=== PATIENT | male | born 1960 | race African-American/Black ===

== ENCOUNTER 2024-04-08 10:47 | Emergency (ER) | payer MEDICAID ==
[~2024-04-08] VITALS: Ht 177.8 cm; Wt 72.3 kg
[2024-04-08] MEDS ORDERED: CLON0.5T2 PO (11:31)
[2024-04-08] MEDS ORDERED: BUPR-94 PO (11:31)
[2024-04-08 11:44] VITALS: BP 162/88; PULSE 77; RESP 16; TEMP 98.7; O2SAT 98
== END 2024-04-08 11:47 | disposition home or self-care (01) ==
LOC: ER 10:47
DX: F31.9 Bipolar disorder, unspecified (principal); Z76.0 Encounter for issue of repeat prescription; Z88.8 Allergy status to other drugs, medicaments and biological substances; Z79.899 Other long term (current) drug therapy
CPT/HCPCS: 99281

== ENCOUNTER 2024-04-15 13:35 | Emergency (ER) | payer MEDICAID ==
[~2024-04-15] VITALS: Ht 180.3 cm; Wt 86.4 kg
[~2024-04-15 13:35] MED LIST: BUPR-94 PO; CLON0.5T2 PO
[2024-04-15 14:20] LABS: BASOPHILS # (AUTO) 0.1 X10'3 (0-0.2); BASOPHILS % (AUTO) 0.8 % (0-1); EOSINOPHILS # (AUTO) 0.1 X10'3 (0-0.9); HEMATOCRIT 43.6 % (42.0-52.0); HEMOGLOBIN 14.2 g/dl (14.0-17.9); LYMPHOCYTES # (AUTO) 1.2 X10'3 (1.1-4.8); LYMPHOCYTES % (AUTO) 16.3 % (21-51); MEAN CORPUSCULAR HEMOGLOBIN 27.2 PG (27.0-31.0); MEAN CORPUSCULAR HGB CONC 32.5 g/dL (33.0-36.5); MEAN CORPUSCULAR VOLUME 83.8 FL (78-98); MEAN PLATELET VOLUME 9.4 FL (7.4-10.4); MONOCYTES # (AUTO) 0.7 X10'3 (0-0.9); MONOCYTES % (AUTO) 9.3 % (2-12); NEUTROPHILS # (AUTO) 5.2 X10'3 (1.8-7.7); NEUTROPHILS % (AUTO) 71.6 % (42-75); PLATELET COUNT 207 X10'3 (140-440); RED CELL DISTRIBUTION WIDTH 14.8 % (11.5-14.5); WHITE BLOOD COUNT 7.2 X10'3 (4.5-11.0)
[2024-04-15 14:31] LABS: ALBUMIN 3.1 G/DL (3.4-5.0); ANION GAP 6 (8-16); BLOOD UREA NITROGEN 12 MG/DL (7-18); BUN/CREATININE RATIO 9.4 (10.0-20.0); CALCIUM 8.3 MG/DL (8.5-10.1); CHLORIDE 99 MMOL/L (99-107); CREATININE 1.27 MG/DL (0.60-1.10); GLUCOSE 113 MG/DL (70-104); POTASSIUM 3.2 MMOL/L (3.5-5.1); SODIUM 135 MMOL/L (135-145); TOTAL CARBON DIOXIDE 30.2 MMOL/L (24-32); eCRCL 63 ML/MIN; eGFR 69 ML/MIN
[2024-04-15 14:34] LABS: APTT 26 SECONDS (22-32); INR 1.1 INR; PROTHROMBIN TIME 11.4 SECONDS (9.0-12.0)
[2024-04-15 14:55] LABS: ETHANOL < 10 MG/DL (<10)
[2024-04-15] MEDS: potassium Cl 20 mEq SR tablet PO STA (16:53)
[2024-04-15 17:06] LABS: BILIRUBIN,URINE NEGATIVE (Neg); CLARITY,URINE CLEAR (Clear); COLOR,URINE YELLOW (Yellow); GLUCOSE, URINE NEGATIVE (Neg); KETONES,URINE NEGATIVE (Neg); LEUKOCYTE ESTERASE ,URINE NEGATIVE (Neg); NITRITES, URINE NEGATIVE (Neg); OCCULT BLOOD,URINE NEGATIVE (Neg); PROTEIN,URINE NEGATIVE (Neg); UROBILINOGEN,URINE 0.2 E.U/dL (0.2-1.0)
[2024-04-15 17:26] LABS: URINE AMPHETAMINE SCREEN NEGATIVE (Neg); URINE BARBITUATE SCREEN NEGATIVE (Neg); URINE BENZODIAZEPINES SCREEN NEGATIVE (Neg); URINE CANNABINOID SCREEN NEGATIVE (Neg); URINE COCAINE SCREEN NEGATIVE (Neg); URINE METHADONE SCREEN NEGATIVE (Neg); URINE OPIATE SCREEN NEGATIVE (Neg); URINE PHENCYCLIDINE SCREEN NEGATIVE (Neg)
[2024-04-15 17:30] LABS: UA COLLECTION TYPE URINAL
[2024-04-15 18:05] VITALS: BP 127/79; PULSE 70; RESP 16; TEMP 98.2; O2SAT 98
== END 2024-04-15 18:08 | disposition home or self-care (01) ==
LOC: ER 13:36
DX: R53.1 Weakness (principal); R47.81 Slurred speech; R51.9 Headache, unspecified; E11.9 Type 2 diabetes mellitus without complications; Z88.8 Allergy status to other drugs, medicaments and biological substances; Z79.899 Other long term (current) drug therapy
CPT/HCPCS: 36415; 70450; 71045; 80048; 80305; 80320; 81003; 82948; 85025; 85610; 85730; 93005; 99285

== ENCOUNTER 2024-04-30 10:03 | Emergency (ER) | payer MEDICAID ==
[~2024-04-30] VITALS: Ht 177.8 cm; Wt 89.9 kg
[2024-04-30 11:26] LABS: BASOPHILS # (AUTO) 0.1 X10'3 (0-0.2); BASOPHILS % (AUTO) 0.6 % (0-1); EOSINOPHILS # (AUTO) 0.1 X10'3 (0-0.9); EOSINOPHILS % (AUTO) 1.6 % (0-6); HEMOGLOBIN 14.6 g/dl (14.0-17.9); LYMPHOCYTES # (AUTO) 2.5 X10'3 (1.1-4.8); LYMPHOCYTES % (AUTO) 28.7 % (21-51); MEAN CORPUSCULAR HEMOGLOBIN 27.1 PG (27.0-31.0); MEAN CORPUSCULAR HGB CONC 32.5 g/dL (33.0-36.5); MEAN CORPUSCULAR VOLUME 83.5 FL (78-98); MEAN PLATELET VOLUME 10.2 FL (7.4-10.4); MONOCYTES # (AUTO) 0.8 X10'3 (0-0.9); MONOCYTES % (AUTO) 9.1 % (2-12); NEUTROPHILS # (AUTO) 5.2 X10'3 (1.8-7.7); PLATELET COUNT 267 X10'3 (140-440); RED BLOOD COUNT 5.39 X10'6 (4.70-6.10); WHITE BLOOD COUNT 8.7 X10'3 (4.5-11.0)
[2024-04-30 11:54] LABS: ALANINE AMINOTRANSFERASE 277 U/L (12-78); ALBUMIN 3.4 G/DL (3.4-5.0); ALBUMIN/GLOBULIN RATIO 0.6 (1.1-1.5); ALKALINE PHOSPHATASE 91 IU/L (46-116); ANION GAP 10 (8-16); ASPARTATE AMINO TRANSFERASE 121 U/L (10-37); BILIRUBIN,TOTAL 0.5 MG/DL (0.1-1.0); BLOOD UREA NITROGEN 15 MG/DL (7-18); BUN/CREATININE RATIO 17.2 (10.0-20.0); CALCIUM 9.1 MG/DL (8.5-10.1); CHLORIDE 99 MMOL/L (99-107); CREATININE 0.87 MG/DL (0.60-1.10); GLUCOSE 95 MG/DL (70-104); LIPASE 25 U/L (16-77); POTASSIUM 3.8 MMOL/L (3.5-5.1); SODIUM 137 MMOL/L (135-145); TOTAL CARBON DIOXIDE 28.2 MMOL/L (24-32); eCRCL 90 ML/MIN; eGFR > 90 ML/MIN
[2024-04-30 13:04] VITALS: TEMP 98
[2024-04-30 13:59] VITALS: BP 138/80; PULSE 72; RESP 16; O2SAT 97
[2024-04-30] MEDS ORDERED: LISI40TA13 PO (14:55)
[2024-04-30] MEDS ORDERED: CLON-850 PO (14:55)
[2024-04-30] MEDS ORDERED: GABA600T13 PO (14:55)
[2024-04-30] MEDS ORDERED: CHLO50TA52 PO (14:55)
[2024-04-30] MEDS ORDERED: IBUP-1985 PO (14:55)
[2024-04-30] MEDS ORDERED: ONDA-243 PO (14:55)
[2024-04-30] MEDS ORDERED: HYDR25TA5 PO (14:55)
[2024-04-30 14:58] LABS: BILIRUBIN,URINE NEGATIVE (Neg); CLARITY,URINE CLEAR (Clear); COLOR,URINE YELLOW (Yellow); GLUCOSE, URINE NEGATIVE (Neg); KETONES,URINE NEGATIVE (Neg); LEUKOCYTE ESTERASE ,URINE TRACE (Neg); NITRITES, URINE NEGATIVE (Neg); OCCULT BLOOD,URINE NEGATIVE (Neg); PROTEIN,URINE NEGATIVE (Neg); UROBILINOGEN,URINE 0.2 E.U/dL (0.2-1.0)
[2024-04-30] MEDS ORDERED: AMLO10TA13 PO (15:00)
[2024-04-30] MEDS ORDERED: FAMO20TA8 PO (15:00)
[2024-04-30] MEDS: mag hydrox/Alum hydrox/simeth 30ml oral suspension PO ONE (15:01)
[2024-04-30] MEDS: LIDOcaine 2% Viscous 15ml cup MM PRN (15:01)
[2024-04-30] MEDS ORDERED: CLON0.5T54 PO (15:02)
[2024-04-30] MEDS: ondansetron 4mg rapidly disintigrating tab PO ONE (15:02)
[2024-04-30] MEDS: chlorproMAZINE 25mg tablet PO PRN (15:04)
[2024-04-30 15:13] LABS: UA COLLECTION TYPE CLN CATCH MIDSTREAM
[2024-04-30 15:17] LABS: RBC,URINE NONE SEEN /HPF (0-2); WBC,URINE 0-4 /HPF (0-4)
[2024-04-30 15:18] LABS: BACTERIA,URINE FEW /HPF (Neg); MUCUS STRANDS MODERATE /LPF (Neg); SQUAMOUS EPITHELIAL CELL,UR NONE SEEN /LPF (FEW)
== END 2024-04-30 15:15 | disposition home or self-care (01) ==
LOC: ER 10:04
DX: K21.9 Gastro-esophageal reflux disease without esophagitis (principal); R10.9 Unspecified abdominal pain; E11.9 Type 2 diabetes mellitus without complications; Z88.5 Allergy status to narcotic agent; Z79.899 Other long term (current) drug therapy; Z79.1 Long term (current) use of non-steroidal anti-inflammatories (NSAID)
CPT/HCPCS: 36415; 80053; 81001; 83690; 85025; 87088; 99285; Q0161

== ENCOUNTER 2024-05-07 09:31 | Emergency (ER) | payer MEDICAID ==
[~2024-05-07] VITALS: Ht 177.8 cm; Wt 93.3 kg
[~2024-05-07 09:31] MED LIST changes: +AMLO10TA13 PO; +CHLO50TA52 PO; +CLON0.5T54 PO; +FAMO20TA8 PO; +GABA600T13 PO; +HYDR25TA5 PO; +IBUP-1985 PO; +LISI40TA13 PO; +ONDA-243 PO
[2024-05-07 09:39] VITALS: BP 154/89; PULSE 83; RESP 16; TEMP 98; O2SAT 98
[2024-05-07] MEDS ORDERED: BUSP5TAB3 PO (10:37)
[2024-05-07] MEDS ORDERED: BUPR300T53 PO (10:59)
[2024-05-07] MEDS ORDERED: NICO-578 TOP (11:03)
[2024-05-07] MEDS ORDERED: BUPR-94 PO (11:04)
== END 2024-05-07 11:09 | disposition home or self-care (01) ==
LOC: ER 09:31
DX: Z00.00 Encounter for general adult medical examination without abnormal findings (principal); R07.89 Other chest pain; E11.9 Type 2 diabetes mellitus without complications; Z76.0 Encounter for issue of repeat prescription; Z88.5 Allergy status to narcotic agent; Z79.899 Other long term (current) drug therapy; Z72.89 Other problems related to lifestyle
CPT/HCPCS: 99281

== ENCOUNTER 2024-05-27 09:37 | Emergency (ER) | payer MEDICAID ==
[~2024-05-27] VITALS: Ht 180.3 cm; Wt 75.2 kg
[~2024-05-27 09:37] MED LIST changes: +NICO-578 TOP
[2024-05-27] MEDS ORDERED: BUSP10TA11 PO (10:12)
[2024-05-27] MEDS ORDERED: IBUP-1985 PO (10:12)
[2024-05-27] MEDS ORDERED: LISI20TA28 PO (10:12)
[2024-05-27] MEDS ORDERED: HYDR12.55 PO (10:12)
[2024-05-27] MEDS ORDERED: GABA600T13 PO (10:12)
[2024-05-27] MEDS ORDERED: METF-900 PO (10:12)
[2024-05-27] MEDS ORDERED: CLON-850 PO ×2 (10:14→11:16)
[2024-05-27 10:32] VITALS: BP 148/86; PULSE 88; RESP 18; TEMP 97.9; O2SAT 99
== END 2024-05-27 10:35 | disposition home or self-care (01) ==
LOC: ER 09:38
DX: F41.9 Anxiety disorder, unspecified (principal); E11.9 Type 2 diabetes mellitus without complications; Z76.0 Encounter for issue of repeat prescription; Z88.8 Allergy status to other drugs, medicaments and biological substances; Z79.899 Other long term (current) drug therapy; Z79.1 Long term (current) use of non-steroidal anti-inflammatories (NSAID)
CPT/HCPCS: 99281

== ENCOUNTER 2024-06-17 17:35 | Emergency (ER) | payer MEDICAID ==
[~2024-06-17] VITALS: Ht 177.8 cm; Wt 75.0 kg
[~2024-06-17 17:35] MED LIST changes: +BUSP10TA11 PO; +CLON-850 PO; +HYDR12.55 PO; +LISI20TA28 PO; -LISI40TA13 PO; +METF-900 PO
[2024-06-17] MEDS ORDERED: CHLO10TA18 PO (18:40)
[2024-06-17] MEDS ORDERED: CLON0.5T2 PO ×2 (18:40→19:06)
[2024-06-17 19:07] VITALS: BP 148/86; PULSE 88; RESP 18; TEMP 98.8; O2SAT 98
== END 2024-06-17 19:10 | disposition home or self-care (01) ==
LOC: ER 17:36
DX: R06.6 Hiccough (principal); E11.9 Type 2 diabetes mellitus without complications; Z88.5 Allergy status to narcotic agent; Z88.6 Allergy status to analgesic agent; Z88.8 Allergy status to other drugs, medicaments and biological substances
CPT/HCPCS: 99283

== ENCOUNTER 2024-07-20 00:30 | Inpatient (IN) | payer MEDICAID ==
[~2024-07-20] VITALS: Ht 177.8 cm; Wt 95.2 kg
[~2024-07-20 00:30] MED LIST changes: -BUSP10TA11 PO; +GABA-1405 PO; -GABA600T13 PO; -LISI20TA28 PO; -METF-900 PO
[2024-07-20 02:13] LABS: URINE AMPHETAMINE SCREEN NEGATIVE (Neg); URINE BARBITUATE SCREEN NEGATIVE (Neg); URINE BENZODIAZEPINES SCREEN NEGATIVE (Neg); URINE CANNABINOID SCREEN POSITIVE (Neg); URINE COCAINE SCREEN NEGATIVE (Neg); URINE METHADONE SCREEN NEGATIVE (Neg); URINE OPIATE SCREEN NEGATIVE (Neg); URINE PHENCYCLIDINE SCREEN NEGATIVE (Neg)
[2024-07-20] MEDS: HYDROcodone/acetaminophen 10/325mg tab PO ONE (04:12)
[2024-07-20] MEDS: naproxen 500mg tablet PO ONE (04:12)
[2024-07-20 04:26] LABS: BILIRUBIN,URINE NEGATIVE (Neg); CLARITY,URINE CLEAR (Clear); COLOR,URINE YELLOW (Yellow); GLUCOSE, URINE NEGATIVE (Neg); KETONES,URINE NEGATIVE (Neg); LEUKOCYTE ESTERASE ,URINE NEGATIVE (Neg); NITRITES, URINE NEGATIVE (Neg); OCCULT BLOOD,URINE NEGATIVE (Neg); PROTEIN,URINE NEGATIVE (Neg); UA COLLECTION TYPE CLN CATCH MIDSTREAM; UROBILINOGEN,URINE 0.2 E.U/dL (0.2-1.0)
[2024-07-20 04:33] LABS: BASOPHILS % (AUTO) 0.2 % (0-1); EOSINOPHILS # (AUTO) 0.1 X10'3 (0-0.9); EOSINOPHILS % (AUTO) 0.3 % (0-6); HEMATOCRIT 42.5 % (42.0-52.0); HEMOGLOBIN 13.8 g/dl (14.0-17.9); LYMPHOCYTES # (AUTO) 3.2 X10'3 (1.1-4.8); LYMPHOCYTES % (AUTO) 20.6 % (21-51); MEAN CORPUSCULAR HEMOGLOBIN 27.6 PG (27.0-31.0); MEAN CORPUSCULAR HGB CONC 32.4 g/dL (33.0-36.5); MONOCYTES % (AUTO) 6.4 % (2-12); NEUTROPHILS # (AUTO) 11.1 X10'3 (1.8-7.7); NEUTROPHILS % (AUTO) 72.5 % (42-75); PLATELET COUNT 247 X10'3 (140-440); RED CELL DISTRIBUTION WIDTH 14.5 % (11.5-14.5); WHITE BLOOD COUNT 15.4 X10'3 (4.5-11.0)
[2024-07-20 04:39] LABS: D-DIMER 0.35 MG/L FEU (0-0.50)
[2024-07-20 04:43] LABS: ALANINE AMINOTRANSFERASE 36 U/L (12-78); ALBUMIN 3.3 G/DL (3.4-5.0); ALBUMIN/GLOBULIN RATIO 0.6 (1.1-1.5); ALKALINE PHOSPHATASE 87 IU/L (46-116); ANION GAP 6 (8-16); ASPARTATE AMINO TRANSFERASE 22 U/L (10-37); BILIRUBIN,DIRECT 0.2 MG/DL (0-0.3); BILIRUBIN,TOTAL 0.5 MG/DL (0.1-1.0); BLOOD UREA NITROGEN 14 MG/DL (7-18); BUN/CREATININE RATIO 13.1 (10.0-20.0); CALCIUM 8.7 MG/DL (8.5-10.1); CHLORIDE 103 MMOL/L (99-107); CREATININE 1.07 MG/DL (0.60-1.10); GLUCOSE 102 MG/DL (70-104); MAGNESIUM 1.9 MG/DL (1.5-2.4); POTASSIUM 4.1 MMOL/L (3.5-5.1); SODIUM 142 MMOL/L (135-145); TOTAL CARBON DIOXIDE 33.4 MMOL/L (24-32); TOTAL PROTEIN 8.8 G/DL (6.4-8.2); eCRCL 73 ML/MIN; eGFR 84 ML/MIN
[2024-07-20 04:51] LABS: TOTAL CELLS COUNTED 100
[2024-07-20] MEDS: HYDROmorphone 1 mg/ml syringe IV ONE (05:27)
[2024-07-20] MEDS: ondansetron/PF 4mg/2ml inj IV ONE (05:31)
[2024-07-20] MEDS: HYDROcodone/acetaminophen 5mg/325mg tablet PO ONE (05:34)
[2024-07-20] MEDS ORDERED: iohexol 350MG/ML 100ml bottle IV ONE (07:01)
[2024-07-20] MEDS: CefTRIAXone 2gm/D5W 50ml BAG 50 ML IV ONE (07:29)
[2024-07-20] MEDS: normal saline 1000ML IV soln IVB ONE (07:29)
[2024-07-20] MEDS: aspirin 81mg tab.chew PO ONE (07:30)
[2024-07-20] MEDS: enoxaparin 100mg/ml syringe SUBCUT ONE (07:30)
[2024-07-20 08:05] LABS: APTT 25 SECONDS (22-32); INR 1.1 INR; PROTHROMBIN TIME 11.4 SECONDS (9.0-12.0)
[2024-07-20] MEDS ORDERED: potassium Cl 40MEQ/1/2NS 520ml 520 ML IV PRN (08:55)
[2024-07-20] MEDS ORDERED: mag hydrox/Alum hydrox/simeth 30ml oral suspension PO PRN (08:55)
[2024-07-20] MEDS ORDERED: acetaminophen 325mg tablet PO PRN (08:55)
[2024-07-20] MEDS ORDERED: ondansetron/PF 4mg/2ml inj IV PRN (08:55)
[2024-07-20] MEDS ORDERED: magnesium Cl slow-release 64mg tablet PO PRN (08:55)
[2024-07-20] MEDS ORDERED: magnesium sulf-water 2g/50mL 50 ML IV PRN (08:55)
[2024-07-20] MEDS ORDERED: potassium Cl 20 mEq SR tablet PO PRN ×2 (08:55)
[2024-07-20] MEDS ORDERED: magnesium sulf-water 4G/100mL 100 ML IV PRN (08:55)
[2024-07-20] MEDS ORDERED: DOXE10CA3 PO (08:58)
[2024-07-20] MEDS ORDERED: GLEC1TAB PO (08:58)
[2024-07-20 09:13] LABS: PHOSPHORUS 4.4 MG/DL (2.3-4.5)
[2024-07-20] MEDS ORDERED: HYDROcodone/acetaminophen 5mg/325mg tablet PO PRN (10:10)
[2024-07-20] MEDS ORDERED: hydrALAZINE 20mg/ml inj. IV PRN (10:45)
[2024-07-20 11:40] LABS: CHOL/HDL RATIO 2.7 (0.00-4.99); CHOLESTEROL 152 MG/DL (0-200); HDL CHOLESTEROL 57 MG/DL (35-60); LDL CHOLESTEROL 88 MG/DL (50-100); TRIGLYCERIDES 59 MG/DL (20-135)
[2024-07-20 11:44] LABS: HEMOGLOBIN A1C 5.4 % (4.5-6.2)
[2024-07-20] MEDS: losartan 25mg tablet PO ONE (12:04)
[2024-07-20] MEDS: HYDROchlorothiazide 25mg tablet PO SCH (12:05)
[2024-07-20] MEDS: amLODIPine 5mg tablet PO ONE (12:05)
[2024-07-20] MEDS: BUPROPION HCL 150MG XL 24 HR 150 MG TAB PO SCH (12:05)
[2024-07-20 15:05] VITALS: BP 167/98; PULSE 82; RESP 18; TEMP 98.6; O2SAT 99
[2024-07-20] MEDS: chlorproMAZINE 25mg tablet PO SCH (17:07)
[2024-07-20] MEDS: HYDROcodone/acetaminophen 10/325mg tab PO PRN (17:07)
[2024-07-20] MEDS: losartan 25mg tablet PO STA (17:08)
[2024-07-20] MEDS ORDERED: dextrose 50%-water 50ml dispensing syringe IV PRN ×2 (17:45)
[2024-07-20] MEDS ORDERED: DEXTROSE 15 GM of carb/4 tabs (each vial/BOTTLE has 4 tablets) PO PRN ×2 (17:45)
[2024-07-20] MEDS ORDERED: glucagon, human recombinant 1mg kit SUBCUT PRN (17:45)
[2024-07-20 18:00] VITALS: BP 156/98; PULSE 71; RESP 14; TEMP 98.2; O2SAT 98
[2024-07-20] MEDS: K and/or MAG REPLACEMENT MC SCH (19:50)
[2024-07-20 20:00] VITALS: RESP 20; O2SAT 98
[2024-07-20] MEDS: gabapentin 300mg capsule PO SCH (20:40)
[2024-07-20] MEDS: doxepin 10mg capsule PO SCH (20:40)
[2024-07-20] MEDS: enoxaparin 100mg/ml syringe SUBCUT SCH (20:43)
[2024-07-20] MEDS ORDERED: GLECAPREVIR PO SCH (20:50)
[2024-07-20] MEDS ORDERED: PIBRENTASVIR PO SCH (20:50)
[2024-07-20] MEDS: INSULIN LISPRO 100 UNIT/ML INSULN.PEN MULTI-DOSE SQ SCH (21:00)
[2024-07-20] MEDS: insulin glargine (Lantus) pen - multi-dose SQ SCH (21:28)
[2024-07-20 22:00] VITALS: BP 135/87; PULSE 64; RESP 23; TEMP 98.9; O2SAT 100
[2024-07-21 06:13] LABS: BASOPHILS # (AUTO) 0.1 X10'3 (0-0.2); EOSINOPHILS # (AUTO) 0.4 X10'3 (0-0.9); EOSINOPHILS % (AUTO) 4.9 % (0-6); HEMATOCRIT 40.1 % (42.0-52.0); HEMOGLOBIN 13.1 g/dl (14.0-17.9); LYMPHOCYTES # (AUTO) 2.5 X10'3 (1.1-4.8); LYMPHOCYTES % (AUTO) 30.7 % (21-51); MEAN CORPUSCULAR HEMOGLOBIN 27.5 PG (27.0-31.0); MEAN CORPUSCULAR HGB CONC 32.7 g/dL (33.0-36.5); MEAN CORPUSCULAR VOLUME 84.2 FL (78-98); MEAN PLATELET VOLUME 10.2 FL (7.4-10.4); MONOCYTES # (AUTO) 0.7 X10'3 (0-0.9); MONOCYTES % (AUTO) 7.9 % (2-12); NEUTROPHILS # (AUTO) 4.6 X10'3 (1.8-7.7); NEUTROPHILS % (AUTO) 55.5 % (42-75); PLATELET COUNT 171 X10'3 (140-440); RED BLOOD COUNT 4.76 X10'6 (4.70-6.10); RED CELL DISTRIBUTION WIDTH 14.1 % (11.5-14.5); WHITE BLOOD COUNT 8.3 X10'3 (4.5-11.0)
[2024-07-21 06:16] LABS: ALBUMIN 2.9 G/DL (3.4-5.0); ANION GAP 4 (8-16); BLOOD UREA NITROGEN 15 MG/DL (7-18); BUN/CREATININE RATIO 14.7 (10.0-20.0); CALCIUM 8.3 MG/DL (8.5-10.1); CHLORIDE 100 MMOL/L (99-107); CREATININE 1.02 MG/DL (0.60-1.10); GLUCOSE 99 MG/DL (70-104); POTASSIUM 3.7 MMOL/L (3.5-5.1); SODIUM 134 MMOL/L (135-145); TOTAL CARBON DIOXIDE 30.3 MMOL/L (24-32); eCRCL 77 ML/MIN; eGFR 89 ML/MIN
[2024-07-21 06:55] VITALS: BP 138/86; PULSE 76; RESP 18; O2SAT 96
[2024-07-21] MEDS: losartan 25mg tablet PO SCH (07:56)
[2024-07-21] MEDS: amLODIPine 5mg tablet PO SCH (07:58)
[2024-07-21] MEDS: doxepin 10mg capsule PO SCH (07:59)
[2024-07-21] MEDS: CefTRIAXone/D5W-Rocephin 1gm 50 ML IV SCH (08:18)
[2024-07-21 08:41] VITALS: RESP 18; O2SAT 99
[2024-07-21 10:26] VITALS: BP 146/92; PULSE 85; RESP 18; TEMP 97.5; O2SAT 99
[2024-07-21 10:40] VITALS: RESP 18; O2SAT 96
[2024-07-21] MEDS: magnesium hydroxide 30ml (MOM) UD suspension PO PRN (11:12)
[2024-07-21 18:00] VITALS: BP 139/89; PULSE 93; RESP 17; TEMP 97.5; O2SAT 97
[2024-07-21 20:00] VITALS: RESP 17; O2SAT 97
[2024-07-21] MEDS: clonazePAM 0.5mg tablet PO PRN (20:48)
[2024-07-21] MEDS: PIBRENTASVIR PO SCH (20:56)
[2024-07-21] MEDS: GLECAPREVIR PO SCH (20:56)
[2024-07-22 06:00] VITALS: BP 144/80; PULSE 77; RESP 18; TEMP 97.9; O2SAT 94
[2024-07-22 06:02] LABS: BASOPHILS # (AUTO) 0.1 X10'3 (0-0.2); BASOPHILS % (AUTO) 1.3 % (0-1); EOSINOPHILS # (AUTO) 0.4 X10'3 (0-0.9); EOSINOPHILS % (AUTO) 4.5 % (0-6); HEMATOCRIT 41.3 % (42.0-52.0); HEMOGLOBIN 13.5 g/dl (14.0-17.9); LYMPHOCYTES # (AUTO) 2.6 X10'3 (1.1-4.8); LYMPHOCYTES % (AUTO) 30.5 % (21-51); MEAN CORPUSCULAR HEMOGLOBIN 27.6 PG (27.0-31.0); MEAN CORPUSCULAR HGB CONC 32.6 g/dL (33.0-36.5); MEAN CORPUSCULAR VOLUME 84.7 FL (78-98); MEAN PLATELET VOLUME 9.8 FL (7.4-10.4); MONOCYTES # (AUTO) 0.8 X10'3 (0-0.9); MONOCYTES % (AUTO) 9.5 % (2-12); NEUTROPHILS # (AUTO) 4.6 X10'3 (1.8-7.7); NEUTROPHILS % (AUTO) 54.2 % (42-75); PLATELET COUNT 199 X10'3 (140-440); RED BLOOD COUNT 4.87 X10'6 (4.70-6.10); RED CELL DISTRIBUTION WIDTH 14.5 % (11.5-14.5); WHITE BLOOD COUNT 8.4 X10'3 (4.5-11.0)
[2024-07-22 06:16] LABS: ANION GAP 5 (8-16); BLOOD UREA NITROGEN 25 MG/DL (7-18); BUN/CREATININE RATIO 20.8 (10.0-20.0); CALCIUM 8.4 MG/DL (8.5-10.1); CHLORIDE 101 MMOL/L (99-107); GLUCOSE 95 MG/DL (70-104); POTASSIUM 4.7 MMOL/L (3.5-5.1); SODIUM 138 MMOL/L (135-145); TOTAL CARBON DIOXIDE 32.1 MMOL/L (24-32); eCRCL 65 ML/MIN; eGFR 74 ML/MIN
[2024-07-22] MEDS ORDERED: LOSA25TA41 PO (07:45)
[2024-07-22] MEDS ORDERED: LACT1CAP26 PO (07:45)
[2024-07-22] MEDS ORDERED: CEFD300C3 PO (07:45)
[2024-07-22 08:19] VITALS: RESP 17; O2SAT 97
[2024-07-22 10:00] VITALS: BP 124/72; PULSE 78; RESP 18; TEMP 98.1; O2SAT 97
[2024-07-22 11:35] VITALS: RESP 18
[2024-07-22] MEDS ORDERED: APIX5TAB3 PO ×2 (12:31→12:32)
== END 2024-07-22 13:10 | disposition home or self-care (01) | DRG 197 ==
LOC: ER 00:32 → ED HOLD 07:16 → UNDOADMIN 07:16 → ED HOLD 08:54 → ORTHO 4S 14:55 → ED HOLD 14:55
PROVIDERS: ADMIT Family Medicine; ATTEND Family Medicine
PROC: B3251ZZ Computerized Tomography (CT Scan) of Bilateral Common Carotid Arteries using Low Osmolar Contrast (ICD-10-PCS; principal; 2024-07-20)
PROC: B32G1ZZ Computerized Tomography (CT Scan) of Bilateral Vertebral Arteries using Low Osmolar Contrast (ICD-10-PCS; 2024-07-20)
PROC: B32R1ZZ Computerized Tomography (CT Scan) of Intracranial Arteries using Low Osmolar Contrast (ICD-10-PCS; 2024-07-20)
PROC: B3281ZZ Computerized Tomography (CT Scan) of Bilateral Internal Carotid Arteries using Low Osmolar Contrast (ICD-10-PCS; 2024-07-20)
DX: I82.4Z2 Acute embolism and thrombosis of unspecified deep veins of left distal lower extremity (principal); L03.116 Cellulitis of left lower limb; F41.9 Anxiety disorder, unspecified; M17.12 Unilateral primary osteoarthritis, left knee; I16.0 Hypertensive urgency; E11.9 Type 2 diabetes mellitus without complications; Z88.5 Allergy status to narcotic agent; Z79.899 Other long term (current) drug therapy; Z90.49 Acquired absence of other specified parts of digestive tract
CPT/HCPCS: 36415; 71275; 73564; 73610; 80048; 80061; 80076; 80305; 81003; 82948; 83036; 83605; 83735; 84100; 84145; 85007; 85025; 85379; 85610; 85730; 87040; 87081; 93005; 93306; 93971; 99285; G0378; J0696; J1650; J1815; J2405; J7030; Q0161; Q9967

== ENCOUNTER 2024-08-04 13:54 | Emergency (ER) | payer MEDICAID ==
[~2024-08-04] VITALS: Ht 177.8 cm; Wt 95.0 kg
[~2024-08-04 13:54] MED LIST changes: +APIX5TAB3 PO; +CEFD300C3 PO; -CLON0.5T54 PO; +DOXE10CA3 PO; +GLEC1TAB PO; -HYDR12.55 PO; +LACT1CAP26 PO; +LOSA25TA41 PO; +OXYC-145 PO
[2024-08-04] MEDS: ketorolac trometh 15mg/ml vial 15 MG/ML ML IM ONE (15:08)
[2024-08-04 15:21] LABS: BILIRUBIN,URINE NEGATIVE (Neg); CLARITY,URINE CLEAR (Clear); COLOR,URINE YELLOW (Yellow); GLUCOSE, URINE NEGATIVE (Neg); KETONES,URINE NEGATIVE (Neg); LEUKOCYTE ESTERASE ,URINE NEGATIVE (Neg); NITRITES, URINE NEGATIVE (Neg); OCCULT BLOOD,URINE TRACE-INTACT (Neg); PROTEIN,URINE NEGATIVE (Neg)
[2024-08-04 15:22] LABS: BASOPHILS # (AUTO) 0.1 X10'3 (0-0.2); BASOPHILS % (AUTO) 0.7 % (0-1); EOSINOPHILS # (AUTO) 0.1 X10'3 (0-0.9); EOSINOPHILS % (AUTO) 1.3 % (0-6); HEMATOCRIT 43.5 % (42.0-52.0); HEMOGLOBIN 14.3 g/dl (14.0-17.9); LYMPHOCYTES # (AUTO) 2.4 X10'3 (1.1-4.8); LYMPHOCYTES % (AUTO) 25.7 % (21-51); MEAN CORPUSCULAR HEMOGLOBIN 28.1 PG (27.0-31.0); MEAN CORPUSCULAR VOLUME 85.2 FL (78-98); MONOCYTES # (AUTO) 0.7 X10'3 (0-0.9); MONOCYTES % (AUTO) 7.4 % (2-12); NEUTROPHILS # (AUTO) 6.1 X10'3 (1.8-7.7); NEUTROPHILS % (AUTO) 64.9 % (42-75); PLATELET COUNT 212 X10'3 (140-440); RED CELL DISTRIBUTION WIDTH 13.9 % (11.5-14.5); WHITE BLOOD COUNT 9.4 X10'3 (4.5-11.0)
[2024-08-04 15:31] LABS: UA COLLECTION TYPE CLN CATCH MIDSTREAM
[2024-08-04 15:32] LABS: WBC,URINE 0-4 /HPF (0-4)
[2024-08-04 15:33] LABS: BACTERIA,URINE NONE SEEN /HPF (Neg); RBC,URINE 0-2 /HPF (0-2); SQUAMOUS EPITHELIAL CELL,UR FEW /LPF (FEW); TRANSITIONAL EPI CELLS,URINE FEW /HPF
[2024-08-04 15:47] LABS: ALANINE AMINOTRANSFERASE 19 U/L (12-78); ALBUMIN 3.4 G/DL (3.4-5.0); ALBUMIN/GLOBULIN RATIO 0.6 (1.1-1.5); ALKALINE PHOSPHATASE 80 IU/L (46-116); ANION GAP 7 (8-16); ASPARTATE AMINO TRANSFERASE 16 U/L (10-37); BILIRUBIN,TOTAL 0.5 MG/DL (0.1-1.0); BLOOD UREA NITROGEN 15 MG/DL (7-18); BUN/CREATININE RATIO 14.9 (10.0-20.0); CALCIUM 8.5 MG/DL (8.5-10.1); CHLORIDE 103 MMOL/L (99-107); CREATININE 1.01 MG/DL (0.60-1.10); GLUCOSE 87 MG/DL (70-104); LIPASE 41 U/L (16-77); SODIUM 139 MMOL/L (135-145); TOTAL CARBON DIOXIDE 28.6 MMOL/L (24-32); TOTAL PROTEIN 8.8 G/DL (6.4-8.2); eCRCL 77 ML/MIN; eGFR 90 ML/MIN
[2024-08-04] MEDS: HYDROcodone/acetaminophen 10/325mg tab PO ONE (15:58)
[2024-08-04 16:39] VITALS: BP 145/89; PULSE 89; RESP 16; TEMP 98.8; O2SAT 98
[2024-08-04] MEDS ORDERED: ONDA-245 PO (16:41)
[2024-08-04] MEDS ORDERED: HYDR-3965 PO (16:41)
== END 2024-08-04 16:40 | disposition home or self-care (01) ==
LOC: ER 13:55
DX: M54.50 Low back pain, unspecified (principal); E11.9 Type 2 diabetes mellitus without complications; M79.605 Pain in left leg; Z88.5 Allergy status to narcotic agent; Z79.899 Other long term (current) drug therapy; Z79.01 Long term (current) use of anticoagulants; W19.XXXA Unspecified fall, initial encounter; Y93.89 Activity, other specified; Y92.89 Other specified places as the place of occurrence of the external cause; Y99.8 Other external cause status
CPT/HCPCS: 36415; 72100; 80053; 81001; 83690; 85025; 99284

== ENCOUNTER 2024-12-28 15:00 | Emergency (ER) | payer MEDICAID ==
[~2024-12-28] VITALS: Ht 177.8 cm; Wt 99.7 kg
[~2024-12-28 15:00] MED LIST changes: +ONDA-245 PO
[2024-12-28] MEDS: ondansetron 4mg rapidly disintigrating tab PO ONE (17:45)
[2024-12-28] MEDS: chlorproMAZINE 25mg/ml inj. IM ONE (17:45)
[2024-12-28 17:52] VITALS: BP 132/86; PULSE 89; RESP 16; TEMP 97.8; O2SAT 99
== END 2024-12-28 18:04 | disposition home or self-care (01) ==
LOC: ER 15:02
DX: R06.6 Hiccough (principal); E11.9 Type 2 diabetes mellitus without complications; Z88.5 Allergy status to narcotic agent
CPT/HCPCS: 96372; 99283; J3230

== ENCOUNTER 2025-01-18 18:17 | Emergency (ER) | payer MEDICAID ==
[~2025-01-18] VITALS: Ht 177.8 cm; Wt 101.1 kg
[2025-01-18 18:24] VITALS: BP 176/85; PULSE 91; RESP 19; O2SAT 98
--- NOTE | 2025-01-18 19:15 | Physician Documentation ---
HPI ~ General Chief Complaint: Medication Request Stated Complaint: MED REQUEST Time Seen by MD: 19:10 Primary Medical Doctor: NO PCP History of Present Illness HPI Comments This 64-year-old male presents with right knee pain, patient reports that he has supposed to be getting a to knee replacement though surgery has been delayed, patient reports that he has been switched from [place] 10s to Tylenol with codeine by his primary care provider however this is not adequately treating his pain in his requesting to go back on [place], he was seen at an urgent care who directed him to the emergency department. Medication Reconciliation Allergies: Coded Allergies: morphine (Verified Adverse Reaction, Unknown, "DOESN'T LIKE IT", 12/28/24) Scheduled Amlodipine Besylate (Amlodipine Besylate), 1 TAB PO DAILY Apixaban (Eliquis), 5 MG PO BID Bupropion Hcl (Wellbutrin Xl), 1 TAB PO DAILY Cefdinir (Cefdinir), 1 CAP PO Q12H Chlorpromazine HCl (Chlorpromazine HCl), 1 TAB PO Q8H Doxepin HCl (Doxepin HCl), 1 CAP PO HS, (Reported) Famotidine (Famotidine), 1 TAB PO Q12H Gabapentin (Gabapentin), 1 TAB PO Q8H Glecaprevir/Pibrentasvir (Mavyret 100-40 mg Tablet), 3 TAB PO DAILY Hydrochlorothiazide (Hydrochlorothiazide), 1 TAB PO DAILY Ibuprofen (Ibuprofen), 1 TAB PO Q8H Lactobacillus Rhamnosus (Culturelle), 1 CAP PO DAILY Losartan Potassium (Losartan Potassium), 50 MG PO DAILY Naloxone HCl (Narcan), 1 SPRAYS BOTHNARES ONCE Nicotine (Nicotine Patch), 1 PATCH TOP DAILY Ondansetron 8mg ODT (Ondansetron Odt), 1 TAB PO Q6H Scheduled PRN Clonazepam (Klonopin), 1 TAB PO QDAY PRN PRN for anxiety Clonazepam (Klonopin), 1 TAB PO Q12H PRN PRN for anxiety Hydrocodone Bit/Acetaminophen (Hydrocodone-Apap 10-325 Tablet), 1 TAB PO QID PRN PRN for pain ONDANSETRON ODT 4mg tablet (Ondansetron Odt), 1 TAB PO Q6H PRN PRN for nausea/vomiting Oxycodone HCl/Acetaminophen (Percocet 5-325 mg Tablet), 1-2 TABLET PO Q4H PRN for pain Past Medical History Past Medical History: Diabetes, Chronic Pain (Knee pain) Past Surgical History: noncontributory Patient History: FH: stroke FHx: cardiovascular disease Alcohol Use: Occasionally Drug Use: none, marijuana Lives with: Alone Lives In: Home Review of Systems ROS Knee pain as stated above in the HPI, otherwise all systems are reviewed and negative. Physical Exam Physical Exam Vital Signs: Temperature: 99.1, Source: Oral, Heart Rate: 91, Respiratory Rate: 19, BP: 176/85, Pulse Oximetry: 98, Weight: 101.140 Physical Exam VITALS: Reviewed and as above. GENERAL: Alert, nontoxic appearing, no apparent distress. RESPIRATORY: No increased work of breathing, no respiratory distress, speaking in full clear sentences MUSCULOSKELETAL: Right knee tender to palpation, walks with a cane and limping gait Progress Results/Orders Results/Orders Vital Signs 01/18/25 01/18/25 18:24 19:23 Temp 99.1 99.1 Pulse 91 Resp 19 B/P (MAP) 176/85 Pulse Ox 98 Medical Decision Making Findings This is a 64-year-old male presenting requesting refill of [place] prescription due to chronic right knee pain that he is waiting knee replacement. Cures report was generated and demonstrate patient has an active prescription for Tylenol with codeine and had previously been prescribed [place] 10s though [place] 10 prescription has run out some time ago. As patient previously had pain well managed with [place] 10s and pain is not adequately managed with Tylenol with codeine will give patient a short prescription for [place] to manage his knee pain however he will need to follow up with his primary care provider to switch this medication back in a long-term basis. Patient is appropriate for outpatient follow up. I have discussed with the patient the risks of addiction and overdose associated with use of opioids, including the increased risk of addiction to an opioid for an individual who is suffering from both mental and substance abuse disorders. I have discussed with the patient the danger of taking an opioid with a benzodiazepine, alcohol, or another central nervous system depressant. Patient additionally discharged with a prescription for Narcan. Differential Dx:Considerations: Include: Adverse circumstances, Psychosocial, Medical services unavail. Departure Disposition: 01 HOME / SELF CARE / HOMELESS Impression: Primary Impression: Knee pain, right Qualified Codes: M25.561 - Pain in right knee; G89.29 - Other chronic pain Condition: Improved Discharge Instructions: Medicine Refill at the Emergency Department Additional Instructions: Please take the medications as prescribed. Please follow up with your primary care provider in the next few days. Please return to the emergency department for any new or worsening concerning symptoms. You have been prescribed an opioid medication, there are risks of addiction and overdose associated with the use of opioids. The risk of addiction to an opioid for increases for those suffering both from mental health and substance use disorders. The use of an opioid while taking other central nervous system depressants including but not limited to benzodiazepines or alcohol, or other opioids increases the risk of serious side effects that can include overdose or respiratory depression that can lead to serious injury or . You have been prescribed Narcan as well which is a medication that can use to reverse the effects of opioid overdose. Referrals: NO PRIMARY CARE PROVIDER (PCP) Prescriptions Naloxone HCl (Narcan) 4 Mg/Actuation [place] 1 SPRAYS BOTHNARES ONCE for 1 Day, #1 EA 0 Refills Prov: NAYA WEN 01/18/25 Hydrocodone Bit/Acetaminophen (Hydrocodone-Apap 10-325 Tablet) 10mg/325mg Tablet 1 TAB PO QID PRN PRN for pain for 3 Days, #12 TAB Prov: NAYA WEN 01/18/25 Education Educated: Patient Educated regarding: diagnosis, treatment, prognosis, need for follow up Signature Scribe Signature: No scribe Attestation: The note accurately reflects work and decisions made by me.ANJELICA Tracy 01/19/25 02:27 NAYA WEN January 18, 2025 19:15
[2025-01-18] MEDS ORDERED: HYDR-3973 PO (19:19)
[2025-01-18] MEDS ORDERED: NALO4SPR BOTHNARES (19:19)
[2025-01-18 19:23] VITALS: TEMP 99.1
== END 2025-01-18 19:27 | disposition home or self-care (01) ==
LOC: ER 18:18
DX: M25.561 Pain in right knee (principal); E11.9 Type 2 diabetes mellitus without complications; F12.90 Cannabis use, unspecified, uncomplicated; Z88.5 Allergy status to narcotic agent
CPT/HCPCS: 99283

== ENCOUNTER 2025-03-18 11:53 | Emergency (ER) | payer MEDICAID ==
[~2025-03-18] VITALS: Ht 180.3 cm; Wt 90.0 kg
[~2025-03-18 11:53] MED LIST changes: +NALO4SPR BOTHNARES
[2025-03-18] MEDS ORDERED: HYDR-3973 PO (14:43)
[2025-03-18] MEDS ORDERED: GABA-1405 PO (14:43)
--- NOTE | 2025-03-18 14:45 | Physician Documentation ---
History of Present Illness ~ Chief Complaint: Multiple Medical Complaints Stated Complaint: FALL/LEG PAIN Time Seen by MD: 13:46 Primary Medical Doctor: NO PCP Source: patient Mode of Arrival: POV Exam Limitations: no limitations HPI 65-year-old male with chief complaint right knee pain which he states has been an ongoing issue is waiting for a knee replacement with Dr. Ruiz. He states he saw Dr. Ruiz in October of this year and had his cardiac clearance as well as all of his other clearances and still does not have a surgical appointment. He states he has not heard from his office since his appointment in October and has left numerous messages to try to get scheduled. In the he states he is out of his pain medication and he has been taking gabapentin 600 mg TID along with [place] 10/325 mg TID. He goes to [facility] who feels this for him but states he was not able to get seen there until the and they will not fill it until he has his appointment. Patient is also concerned that he may have another DVT as he has soreness in his left calf when he ambulates. 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 He is not on blood thinners. No chest pain or shortness of breath. Tetanus witin 5 years: Yes (2023) Medication Reconciliation Allergies: Coded Allergies: morphine (Verified Adverse Reaction, Unknown, "DOESN'T LIKE IT", 03/18/25) Scheduled Amlodipine Besylate (Amlodipine Besylate), 1 TAB PO DAILY Apixaban (Eliquis), 5 MG PO BID Bupropion Hcl (Wellbutrin Xl), 1 TAB PO DAILY Cefdinir (Cefdinir), 1 CAP PO Q12H Chlorpromazine HCl (Chlorpromazine HCl), 1 TAB PO Q8H Doxepin HCl (Doxepin HCl), 1 CAP PO HS, (Reported) Famotidine (Famotidine), 1 TAB PO Q12H Gabapentin (Gabapentin), 1 TAB PO Q8H Gabapentin (Gabapentin), 1 TAB PO Q8H Glecaprevir/Pibrentasvir (Mavyret 100-40 mg Tablet), 3 TAB PO DAILY Hydrochlorothiazide (Hydrochlorothiazide), 1 TAB PO DAILY Ibuprofen (Ibuprofen), 1 TAB PO Q8H Lactobacillus Rhamnosus (Culturelle), 1 CAP PO DAILY Losartan Potassium (Losartan Potassium), 50 MG PO DAILY Naloxone HCl (Narcan), 1 SPRAYS BOTHNARES ONCE Nicotine (Nicotine Patch), 1 PATCH TOP DAILY Ondansetron 8mg ODT (Ondansetron Odt), 1 TAB PO Q6H Scheduled PRN Clonazepam (Klonopin), 1 TAB PO QDAY PRN PRN for anxiety Clonazepam (Klonopin), 1 TAB PO Q12H PRN PRN for anxiety Hydrocodone Bit/Acetaminophen (Hydrocodone-Apap 10-325 Tablet), 1 TAB PO TID PRN PRN for pain ONDANSETRON ODT 4mg tablet (Ondansetron Odt), 1 TAB PO Q6H PRN PRN for nausea/vomiting Oxycodone HCl/Acetaminophen (Percocet 5-325 mg Tablet), 1-2 TABLET PO Q4H PRN for pain Durable Medical Equipment Cane (Cane), EA, (DME) Past Medical History Past Medical History: Diabetes, Chronic Pain Past Surgical History: noncontributory Patient History: FH: stroke FHx: cardiovascular disease Alcohol Use: Occasionally Drug Use: none, marijuana Lives with: Alone Lives In: Home Review of Systems All Other Systems at this time: Reviewed and Negative Physical Exam Vital Signs: Temperature: 99.1, Source: Temporal, Heart Rate: 89, Respiratory Rate: 17, BP: 181/90, Pulse Oximetry: 97, Weight: 89.950 Oxygen Flow Rate: 0 Physical Exam GENERAL: Alert, no acute distress. HEENT: NCAT, EOMI, PERRL, normal oropharynx, moist oral mucosa. NECK: Supple, trachea midline. CARDIAC: Regular rate and rhythm, no murmurs, rubs, or gallops. PV: Equal distal pulses. No lower extremity edema, cap refill less than 2 seconds. RESPIRATORY: Equal breath sounds, clear to auscultation bilaterally, no res piratory distress. GASTROINTESTINAL: Non distended, soft, nontender, No guarding or rebound. MUSCULOSKELETAL: LEFT LEG: NO CALF REPRODUCIBLE TTP. RIGHT LEG: EFFUSION OF KNEE, NO ERYTHEMA, SKIN INTACT, TTP OVER ANTERIOR JOINT SPACE. Normal gait. NEUROLOGICAL: Awake, alert, and oriented x 3. SKIN: Warm/dry, no pallor, no rash. PSYCH: Alert and appropriate. Affect congruent with mood. Speech is clear. Good eye contact. Progress Results/Orders Results/Orders Orders - RAINER HARRISON Vl Venous (03/18/25 13:46) Completed Orders - RAINER HARRISON Vl Venous (03/18/25 13:46) Vital Signs 03/18/25 03/18/25 03/18/25 03/18/25 11:54 13:38 14:32 14:55 Temp 99.1 99.1 99.1 Pulse 89 89 75 Resp 16 15 17 18 B/P (MAP) 162/101 181/90 (120) 168/89 Pulse Ox 99 97 98 O2 Flow Rate 0 Medical Decision Making Knee Diff Dx:Considerations: Include: Abrasion, Arthritis, Contusion, DJD, Fracture-femur, Fracture-fibula, Fracture-patella, Fracture-tibia, Gout, Hematoma, Laceration, Meniscus injury, Neurovascular injury, Open fracture, Rheumatoid arthritis, Septic, Sprain, Sprain-MCL, Sprain-LCL, Sprain-ACL, Sprain-PCL Departure Time of Disposition: 14:40 Disposition: 01 HOME / SELF CARE / HOMELESS Impression: Primary Impression: Knee pain, right Qualified Codes: M25.561 - Pain in right knee Additional Impressions: Degenerative joint disease of knee Qualified Codes: M17.11 - Unilateral primary osteoarthritis, right knee Left leg pain Condition: Stable Discharge Instructions: Acute Knee Pain, Adult, [id number] Additional Instructions: F/U WITH DR. FERNANDES OFFICE RE: YOUR SURGERY DATE SINCE YOU HAVE COMPLETED ALL THE STEPS FOR YOUR SURGERY YOUR U/S WAS NEGATIVE FOR A DVT Referrals: NO PRIMARY CARE PROVIDER (PCP) Prescriptions Cane (Cane) 1 Each Each EA, #1 unsteady gait due to DJD pending knee replacement. dx: M25.56 Prov: RAINER HARRISON 03/18/25 Gabapentin (Gabapentin) 600 Mg Tablet 1 TAB PO Q8H for 30 Days, #90 TAB 0 Refills Prov: RAINER HARRISON 03/18/25 Hydrocodone Bit/Acetaminophen (Hydrocodone-Apap 10-325 Tablet) 10mg/325mg Tablet 1 TAB PO TID PRN PRN for pain for 10 Days, #30 TAB M25.56 Prov: RAINER HARRISON 03/18/25 Education Educated: Patient Educated regarding: diagnosis, treatment, need for follow up Signature Scribe Signature: X Attestation: RAINER CARPIO Mar 18, 2025 14:45
[2025-03-18] MEDS ORDERED: CANE-100 (14:47)
--- NOTE | 2025-03-18 14:47 | VASCULAR REPORT ---
Bilateral lower extremity venous duplex Clinical History: Left lower extremity swelling Comparison: VASC VL VENOUS on DOS: 07/25/24, VASC VL VENOUS on DOS: 07/20/24 Technique: Duplex Doppler evaluation of the deep venous system of left lower extremities from the common femoral veins to the popliteal veins including color Doppler and spectral/pulsed waveform analysis was perfo rmed. Findings: The common femoral vein demonstrates appropriate compressibility and waveform variability. There is compressibility/patency of the great saphenous vein at the proximal thigh. The femoral vein demonstrates appropriate compressibility and waveform variability. The deep femoral vein demonstrates appropriate compressibility and waveform variability. The popliteal vein demonstrates appropriate compressibility and waveform variability. There is normal compressibility at the tibioperoneal trunk. Impression: 1. No left femoropopliteal venous thrombosis.
[2025-03-18 14:55] VITALS: BP 168/89; PULSE 75; RESP 18; TEMP 99.1; O2SAT 98
== END 2025-03-18 15:00 | disposition home or self-care (01) ==
LOC: ER 11:53
DX: M17.9 Osteoarthritis of knee, unspecified (principal); M25.561 Pain in right knee; E11.9 Type 2 diabetes mellitus without complications; F12.90 Cannabis use, unspecified, uncomplicated; Z88.5 Allergy status to narcotic agent; Z79.899 Other long term (current) drug therapy; Z72.89 Other problems related to lifestyle; Z60.2 Problems related to living alone
CPT/HCPCS: 93971; 99284

== ENCOUNTER 2025-04-12 21:41 | Emergency (ER) | payer MEDICAID ==
[~2025-04-12] VITALS: Ht 177.8 cm; Wt 86.0 kg
[~2025-04-12 21:41] MED LIST changes: +CANE-100
[2025-04-12 22:16] VITALS: TEMP 98.2
[2025-04-13 00:02] VITALS: BP 152/99; PULSE 92; O2SAT 98
--- NOTE | 2025-04-13 03:18 | Physician Documentation ---
HPI ~ General Chief Complaint: Medication Request Stated Complaint: KNEE PAIN Time Seen by MD: 03:14 OK to notify your PCP?: Yes Primary Medical Doctor: NO PCP Source: patient, RN/MD, RN notes reviewed, old records Mode of Arrival: POV Exam Limitations: no limitations History of Present Illness HPI Comments 65 year old male seen in bed 19 presents to the emergency department complaining of chronic right knee pain. He states he has been reaching out to his primary as well as his surgeon and has not been able to get a refill on his [place] for pain management. He states that his right knee is bone on bone and endorse pain in his left leg due to a greater reliance. Patient uses a cane. Medication Reconciliation Allergies: Coded Allergies: morphine (Verified Allergy, Unknown, "DOESN'T LIKE IT", 04/13/25) Scheduled Amlodipine Besylate (Amlodipine Besylate), 1 TAB PO DAILY Apixaban (Eliquis), 5 MG PO BID Bupropion Hcl (Wellbutrin Xl), 1 TAB PO DAILY Cefdinir (Cefdinir), 1 CAP PO Q12H Chlorpromazine HCl (Chlorpromazine HCl), 1 TAB PO Q8H Doxepin HCl (Doxepin HCl), 1 CAP PO HS, (Reported) Famotidine (Famotidine), 1 TAB PO Q12H Gabapentin (Gabapentin), 1 TAB PO Q8H Gabapentin (Gabapentin), 1 TAB PO Q8H Glecaprevir/Pibrentasvir (Mavyret 100-40 mg Tablet), 3 TAB PO DAILY Hydrochlorothiazide (Hydrochlorothiazide), 1 TAB PO DAILY Ibuprofen (Ibuprofen), 1 TAB PO Q8H Lactobacillus Rhamnosus (Culturelle), 1 CAP PO DAILY Losartan Potassium (Losartan Potassium), 50 MG PO DAILY Naloxone HCl (Narcan), 1 SPRAYS BOTHNARES ONCE Nicotine (Nicotine Patch), 1 PATCH TOP DAILY Ondansetron 8mg ODT (Ondansetron Odt), 1 TAB PO Q6H Scheduled PRN Clonazepam (Klonopin), 1 TAB PO QDAY PRN PRN for anxiety Clonazepam (Klonopin), 1 TAB PO Q12H PRN PRN for anxiety Hydrocodone Bit/Acetaminophen (Hydrocodone-Apap 10-325 Tablet), 1 TAB PO Q8H PRN for pain, (Reported) Hydrocodone Bit/Acetaminophen (Hydrocodone-Apap 10-325 Tablet), 1 TAB PO QID PRN PRN for pain ONDANSETRON ODT 4mg tablet (Ondansetron Odt), 1 TAB PO Q6H PRN PRN for nausea/vomiting Oxycodone HCl/Acetaminophen (Percocet 5-325 mg Tablet), 1-2 TABLET PO Q4H PRN fo r pain Durable Medical Equipment Cane (Cane), EA, (DME) Past Medical History Past Medical History: Diabetes, Chronic Pain Past Surgical History: noncontributory Patient History: FH: stroke FHx: cardiovascular disease Alcohol Use: Occasionally Drug Use: none, marijuana Lives with: Alone Lives In: Home Review of Systems All Other Systems at this time: Reviewed and Negative ROS As stated above in the HPI, otherwise all systems are reviewed and negative. Physical Exam Physical Exam Vital Signs: RN Vital Signs have been reviewed: Yes, Temperature: 98.2, Source: Temporal, Heart Rate: 92, Respiratory Rate: 18, BP: 152/99, Pulse Oximetry: 98, Weight: 86.000 Oxygen Flow Rate: 0 Pulse Oximetry Reflects: adequate oxygenation Physical Exam GENERAL: Alert, no acute distress. HEENT: NCAT, EOMI, PERRL, normal oropharynx, moist oral mucosa. NECK: Supple, trachea midline. CARDIAC: Regular rate and rhythm, no murmurs, rubs, or gallops. PV: Equal distal pulses. No lower extremity edema, cap refill less than 2 seconds. RESPIRATORY: Equal breath sounds, clear to auscultation bilaterally, no respiratory distress. GASTROINTESTINAL: Non distended, soft, nontender, No guarding or rebound. MUSCULOSKELETAL: LEFT LEG: NO CALF REPRODUCIBLE TTP. RIGHT LEG: EFFUSION OF KNEE, NO ERYTHEMA, SKIN INTACT, TTP OVER ANTERIOR JOINT SPACE. Normal gait. NEUROLOGICAL: Awake, alert, and oriented x 3. SKIN: Warm/dry, no pallor, no rash. PSYCH: Alert and appropriate. Affect congruent with mood. Speech is clear. Good eye contact. Progress Results/Orders Reviewed/noted all lab results: Yes Results/Orders Completed Orders - MAHNAZ BUSCH MD Hydrocodone/Apap 10/325 ([place] 10/325mg (04/13/25 03:25) Naproxen Tablet (Naprosyn Tablet) (04/13/25 03:25) Vital Signs 04/12/25 04/13/25 04/13/25 22:16 00:02 03:37 Temp 98.2 Pulse 99 92 Resp 18 18 16 B/P (MAP) 154/106 152/99 (116) Pulse Ox 99 98 O2 Flow Rate 0 Re-Evaluation Re-Evaluation : Re-Evaluation: Improved Progress Patient was seen and examined. Patient is given reassurance. Patient was given naproxen and [place] for knee pain. Patient was given reassurance and med refill was provided he was told not to have additional refills in the ER that he needs his he is pain management doctor specifically Orthopedic surgery. Medical Decision Making Additional info obtained from: old records Differential Dx:Considerations: Include: Adverse circumstances, Economic, Psychosocial, Medical services unavail., Medication refill, Medication non- compliance, Other Departure Time of Disposition: 03:28 Disposition: HOME / SELF CARE / HOMELESS Impression: Primary Impression: Acute on chronic knee pain Condition: Stable Discharge Instructions: Medicine Refill at the Emergency Department Referrals: NO PRIMARY CARE PROVIDER (PCP) Prescriptions Hydrocodone Bit/Acetaminophen (Hydrocodone-Apap 10-325 Tablet) 10mg/325mg Tablet 1 TAB PO QID PRN PRN for pain for 7 Days, #20 TAB Prov: MAHNAZ BUSCH MD 04/13/25 Education Educated: Patient Educated regarding: diagnosis, treatment, prognosis, need for follow up Signature Scribe Signature: Scribed for Mahnaz Busch MD by Magdaleno Tracey . 04/13/25 03:29 Attestation: The note accurately reflects work and decisions made by me.Mahnaz Busch MD 04/14/25 02:43 MAHNAZ BUSCH MD Apr 13, 2025 03:18 MAGDALENO NOEL Apr 13, 2025 03:29
[2025-04-13] MEDS ORDERED: HYDR-3973 PO ×2 (03:26→03:29)
[2025-04-13 03:37] VITALS: RESP 16
[2025-04-13] MEDS: HYDROcodone/acetaminophen 10/325mg tab PO ONE (03:37)
== END 2025-04-13 03:47 | disposition home or self-care (01) ==
LOC: ER 21:42
DX: M25.461 Effusion, right knee (principal); E11.9 Type 2 diabetes mellitus without complications; Z88.5 Allergy status to narcotic agent; Z79.899 Other long term (current) drug therapy; Z72.89 Other problems related to lifestyle; F12.90 Cannabis use, unspecified, uncomplicated; Z60.2 Problems related to living alone
CPT/HCPCS: 99284

== ENCOUNTER 2025-04-18 11:33 | Emergency (ER) | payer MEDICAID ==
[~2025-04-18] VITALS: Ht 177.8 cm; Wt 108.8 kg
[~2025-04-18 11:33] MED LIST changes: +HYDR-3973 PO
[2025-04-18 12:59] LABS: MEAN PLATELET VOLUME 9.5 FL (7.4-10.4); RED CELL DISTRIBUTION WIDTH 13.7 % (11.5-14.5)
[2025-04-18 13:13] LABS: CREATININE 0.79 MG/DL (0.60-1.10); TOTAL CARBON DIOXIDE 29.2 MMOL/L (24-32); eCRCL 98 ML/MIN; eGFR > 90 ML/MIN
--- NOTE | 2025-04-18 15:29 | Physician Documentation ---
History of Present Illness ~ Chief Complaint: Extremity Swelling Stated Complaint: LEG SWELLING Time Seen by MD: 13:44 Primary Medical Doctor: NO PCP HPI 65-year-old male presents to the ED with a complaint of left leg pain and swelling. States he has a history of DVT. Denies any shortness of breath or chest pain. denies any fevers. Tetanus witin 5 years: Yes (2023) Medication Reconciliation Allergies: Coded Allergies: morphine (Verified Allergy, Unknown, "DOESN'T LIKE IT", 04/18/25) Scheduled Amlodipine Besylate (Amlodipine Besylate), 1 TAB PO DAILY Apixaban (Eliquis), 5 MG PO BID Bupropion Hcl (Wellbutrin Xl), 1 TAB PO DAILY Cefdinir (Cefdinir), 1 CAP PO Q12H Chlorpromazine HCl (Chlorpromazine HCl), 1 TAB PO Q8H Doxepin HCl (Doxepin HCl), 1 CAP PO HS, (Reported) Famotidine (Famotidine), 1 TAB PO Q12H Gabapentin (Gabapentin), 1 TAB PO Q8H Gabapentin (Gabapentin), 1 TAB PO Q8H Glecaprevir/Pibrentasvir (Mavyret 100-40 mg Tablet), 3 TAB PO DAILY Hydrochlorothiazide (Hydrochlorothiazide), 1 TAB PO DAILY Ibuprofen (Ibuprofen), 1 TAB PO Q8H Lactobacillus Rhamnosus (Culturelle), 1 CAP PO DAILY Losartan Potassium (Losartan Potassium), 50 MG PO DAILY Naloxone HCl (Narcan), 1 SPRAYS BOTHNARES ONCE Nicotine (Nicotine Patch), 1 PATCH TOP DAILY Ondansetron 8mg ODT (Ondansetron Odt), 1 TAB PO Q6H Scheduled PRN Clonazepam (Klonopin), 1 TAB PO QDAY PRN PRN for anxiety Clonazepam (Klonopin), 1 TAB PO Q12H PRN PRN for anxiety Hydrocodone Bit/Acetaminophen (Hydrocodone-Apap 10-325 Tablet), 1 TAB PO Q8H PRN for pain, (Reported) Hydrocodone Bit/Acetaminophen (Hydrocodone-Apap 10-325 Tablet), 1 TAB PO QID PRN PRN for pain ONDANSETRON ODT 4mg tablet (Ondansetron Odt), 1 TAB PO Q6H PRN PRN for nausea/vomiting Oxycodone HCl/Acetaminophen (Percocet 5-325 mg Tablet), 1-2 TABLET PO Q4H PRN for pain Durable Medical Equipment Cane (Cane), EA, (DME) Past Medical History Past Medical History: Diabetes, Chronic Pain Past Surgical History: noncontributory Patient History: FH: stroke FHx: cardiovascular disease Alcohol Use: Occasionally Drug Use: none, marijuana Lives with: Alone Lives In: Home Review of Systems All Other Systems at this time: Reviewed and Negative Physical Exam Vital Signs: Temperature: 98.6, Heart Rate: 82, Respiratory Rate: 19, BP: 167/100, Pulse Oximetry: 98, Weight: 108.800 Physical Exam Respiratory: Lungs clear, no respiratory distress. Cardiovascular: Regular rate and rhythm, no murmurs. ExtremitiesLLE erythema and swelling Neurologic: Oriented x4. Psychiatric: Normal mood and affect. Progress Results/Orders Results/Orders Orders - [facility] A[facility] Vl Venous (04/18/25 11:56) Completed Orders - [facility] Vl Venous (04/18/25 11:56) Cbc/Diff (04/18/25 11:56) CMP (04/18/25 11:56) D-Dimer (04/18/25 11:56) Vital Signs 04/18/25 04/18/25 04/18/25 04/18/25 11:50 15:32 15:42 15:45 Temp 98.6 98.6 98.6 Pulse 82 70 70 Resp 19 16 16 16 B/P (MAP) 167/100 158/104 (122) 158/104 Pulse Ox 98 99 99 Laboratory Tests Test 04/18/25 12:37 White Blood Count 8.6 Red Blood Count 5.45 Hemoglobin 14.3 Hematocrit 44.5 Mean Corpuscular Volume 81.6 Mean Corpuscular Hemoglobin 26.3 L Mean Corpuscular Hemoglobin Concent 32.2 L Red Cell Distribution Width 13.7 Platelet Count 213 Mean Platelet Volume 9.5 Neutrophils (%) (Auto) 62.7 Lymphocytes (%) (Auto) 23.2 Monocytes (%) (Auto) 9.1 Eosinophils (%) (Auto) 4.1 Basophils (%) (Auto) 0.9 Neutrophils # (Auto) 5.4 Lymphocytes # (Auto) 2.0 Monocytes # (Auto) 0.8 Eosinophils # (Auto) 0.4 Basophils # (Auto) 0.1 CBC Comment D-Dimer 0.47 D-Dimer Comment Sodium Level 141 Potassium Level 4.0 Chloride Level 103 Carbon Dioxide Level 29.2 Anion Gap 9 Blood Urea Nitrogen 18 Creatinine 0.79 Estimated GFR/1.73 m2 > 90 BUN/Creatinine Ratio 22.8 H Glucose Level 100 Calcium Level 8.7 Total Bilirubin 0.3 Aspartate Amino Transf (AST/SGOT) 19 Alanine Aminotransferase (ALT/SGPT) 23 Alkaline Phosphatase 96 Total Protein 8.2 Albumin 3.4 Globulin 4.8 H Albumin/Globulin Ratio 0.7 L Chemistry Comments Medical Decision Making Findings Vascular US indicated the PT was negatie for DVT. They make note of a bakres cyst on affected limb. this was reassuring to the PT. cleared for DC and outpatient eval Departure Disposition: HOME / SELF CARE / HOMELESS Impression: Primary Impression: Edema of lower extremity Condition: Stable Discharge Instructions: Deep Vein Thrombosis Referrals: NO PRIMARY CARE PROVIDER (PCP) Education Educated: Patient Educated regarding: diagnosis Signature Scribe Signature: f Attestation: Scribed for Kvng [facility] Director Sterile Processing by Kvng Reeves NP . 04/18/25 15:28 [facility] Apr 18, 2025 15:29
[2025-04-18 15:45] VITALS: BP 158/104; PULSE 70; RESP 16; TEMP 98.6; O2SAT 99
--- NOTE | 2025-04-18 16:13 | VASCULAR REPORT ---
Left lower extremity venous duplex Clinical History: Pain Comparison: VASC VL VENOUS on DOS: 03/18/25, VASC VL VENOUS on DOS: 07/25/24, VASC VL VENOUS on DOS: 09/19/23 Technique: Duplex Doppler evaluation of the deep venous system of the left lower extremity from the common femor al vein to the popliteal vein including color Doppler and spectral/pulsed waveform analysis was perfo rmed. Findings: The common femoral vein demonstrates appropriate compressibility and waveform variability. There is compressibility/patency of the great saphenous vein at the proximal thigh. The femoral vein demonstrates appropriate compressibility and waveform variability. The deep femoral vein demonstrates appropriate compressibility and waveform variability. The popliteal vein demonstrates appropriate compressibility and waveform variability. There is normal compressibility at the tibioperoneal trunk. Nonspecific prominent lymph node in the left groin measures 2.0 cm. Impression: No left femoropopliteal venous thrombosis. Contralateral common femoral vein is patent. Popliteal fossa cyst measures 0.9 x 0.8 cm.
== END 2025-04-18 15:48 | disposition home or self-care (01) ==
LOC: ER 11:34
DX: R60.0 Localized edema (principal); E11.9 Type 2 diabetes mellitus without complications; F12.90 Cannabis use, unspecified, uncomplicated; Z86.718 Personal history of other venous thrombosis and embolism; Z88.5 Allergy status to narcotic agent; Z79.899 Other long term (current) drug therapy; Z60.2 Problems related to living alone
CPT/HCPCS: 36415; 80053; 85025; 85379; 93971; 99284

== ENCOUNTER 2025-04-30 19:33 | Emergency (ER) | payer MEDICAID ==
[~2025-04-30] VITALS: Ht 177.8 cm; Wt 100.0 kg
[~2025-04-30 19:33] MED LIST changes: -IBUP-1985 PO; +IBUP600T52 PO
--- NOTE | 2025-04-30 19:44 | ELECTROCARDIOGRAPH REPORT ---
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
--- NOTE | 2025-04-30 20:13 | Physician Documentation ---
History of Present Illness ~ Chief Complaint: Shortness of Breath Stated Complaint: SOB Time Seen by MD: 19:52 Primary Medical Doctor: NO PCP Mode of Arrival: Ambulatory, Dropped Off HPI 65-year-old male who presents with shortness of breath, hiccups, and vomiting He tells me that he has been having these episodes intermittently, where he developed hiccups, difficulty swallowing, and vomiting. In the past he has been given Thorazine, Ativan, and Zofran, with good relief. He also reports having some chest discomfort and shortness of breath. He does have a history of smoking cigarettes but no diagnosis of COPD. He is concerned he may have COPD. These symptoms have also been going on for a couple of days. No fevers or chills. He does report having some diarrhea. No abdominal pain. Medication Reconciliation Allergies: Coded Allergies: morphine (Verified Allergy, Unknown, "DOESN'T LIKE IT", 04/30/25) Scheduled Amlodipine Besylate (Amlodipine Besylate), 1 TAB PO DAILY Apixaban (Eliquis), 5 MG PO BID Bupropion Hcl (Wellbutrin Xl), 1 TAB PO DAILY Cefdinir (Cefdinir), 1 CAP PO Q12H Chlorpromazine HCl (Chlorpromazine HCl), 1 TAB PO Q8H Doxepin HCl (Doxepin HCl), 1 CAP PO HS, (Reported) Famotidine (Famotidine), 1 TAB PO Q12H Gabapentin (Gabapentin), 1 TAB PO Q8H Gabapentin (Gabapentin), 1 TAB PO Q8H Glecaprevir/Pibrentasvir (Mavyret 100-40 mg Tablet), 3 TAB PO DAILY Hydrochlorothiazide (Hydrochlorothiazide), 1 TAB PO DAILY Ibuprofen (Ibuprofen), 1 TAB PO Q8H Lactobacillus Rhamnosus (Culturelle), 1 CAP PO DAILY Losartan Potassium (Losartan Potassium), 50 MG PO DAILY Naloxone HCl (Narcan), 1 SPRAYS BOTHNARES ONCE Nicotine (Nicotine Patch), 1 PATCH TOP DAILY Ondansetron 8mg ODT (Ondansetron Odt), 1 TAB PO Q6H Scheduled PRN Chlorpromazine Hcl* (Thorazine*), 1 TAB PO Q8H PRN for hiccups Clonazepam (Klonopin), 1 TAB PO QDAY PRN PRN for anxiety Clonazepam (Klonopin), 1 TAB PO Q12H PRN PRN for anxiety Hydrocodone Bit/Acetaminophen (Hydrocodone-Apap 10-325 Tablet), 1 TAB PO Q8H PRN for pain, (Reported) Lorazepam (Ativan), 1 TAB PO DAILY PRN for anxiety ONDANSETRON ODT 4mg tablet (Ondansetron Odt), 1 TAB PO Q6H PRN PRN for nausea/vomiting ONDANSETRON ODT 4mg tablet (Ondansetron Odt), 1 TAB PO Q6H PRN PRN for nausea/vomiting Oxycodone HCl/Acetaminophen (Percocet 5-325 mg Tablet), 1-2 TABLET PO Q4H PRN for pain Durable Medical Equipment Cane (Cane), EA, (DME) Past Medical History Past Medical History: Diabetes, Chronic Pain Past Surgical History: noncontributory Patient History: FH: stroke FHx: cardiovascular disease Alcohol Use: Occasionally Drug Use: none, marijuana Lives with: Alone Lives In: Home Review of Systems Constitutional: Denies: fever Gastrointestinal: Reports: nausea, vomiting; Denies: abdominal pain Physical Exam Vital Signs: Temperature: 98.2, Source: Temporal, Heart Rate: 79, Respiratory Rate: 19, BP: 177/106, Pulse Oximetry: 97, Weight: 100.000 Oxygen Flow Rate: 0 Physical Exam General: This is a pleasant middle-aged man, frequently hiccuping and burping HEENT: Atraumatic, oropharynx is moist, no posterior oropharyngeal erythema, swelling, and he is swallowing his secretions. He does have a tender swollen lump in the right posterior auricular region with no surrounding erythema or skin changes Neck: No significant tender lymphadenopathy or swelling to the neck Heart: Regular rate and rhythm, normal-appearing peripheral perfusion Lungs: Breath sounds are difficult to hear due to frequent swallowing and hiccuping, but no definite significant wheezing, no respiratory distress, normal oxygen saturation on room air Abdomen: Soft, nondistended, nontender all quadrants Extremities: Warm and well-perfused Neuro: Alert and oriented Psychiatric: Calm and cooperative with exam Progress Results/Orders Results/Orders Orders - THEODORA FLANAGAN MD Chest,Single View (04/30/25 19:41) Monitor (04/30/25 19:41) Saline Lock (04/30/25 19:41) Oxygen (04/30/25 19:41) Hs Troponin I W Calculations (04/30/25 21:41) Hs Troponin I W Calculations (04/30/25 22:41) Completed Orders - THEODORA FLANAGAN MD Chest,Single View (04/30/25 19:41) BMP (04/30/25 19:41) PBNP (04/30/25 19:41) Electrocardiogram (04/30/25 19:41) Hs Troponin I W Calculations (04/30/25 19:41) Cbc/Diff (04/30/25 20:18) Chlorpromazine Inj (Thorazine Inj) (04/30/25 20:25) Midazolam 1 Mg/Ml 2ml Inj. (Versed 1 Mg/ (04/30/25 20:25) Ondansetron Inj. (Zofran 4mg/2ml Vial) (04/30/25 20:25) Normal Saline 1000ml (0.9% Sodium Chlori (04/30/25 20:30) Chlorpromazine Tablet (Thorazine Tablet) (04/30/25 20:40) Medications Received in ER Medications (Trade) Dose Ordered Sig/Maryse Route PRN Reason Start Time Stop Time Status Last Admin Dose Admin (VERSED 1 MG/ML 2 ML inj.) 1 mg ONCE ONCE IV 04/30/25 20:25 04/30/25 20:26 DC 04/30/25 20:42 1 MG (Zofran 4mg/2ml vial) 4 mg ONCE ONCE IV 04/30/25 20:25 04/30/25 20:33 DC 04/30/25 20:42 4 MG (0.9% sodium chloride (NS) 1000ml IV soln) 1,000 ml ONCE ONCE IVB 04/30/25 20:30 04/30/25 20:31 DC 04/30/25 20:42 1,000 ML (Thorazine tablet) 25 mg ONCE ONCE PO 04/30/25 20:40 04/30/25 20:41 DC 04/30/25 21:16 25 MG Vital Signs 04/30/25 04/30/25 04/30/25 04/30/25 19:36 19:43 21:15 21:37 Temp 98.2 Pulse 79 60 60 Resp 28 19 16 16 B/P (MAP) 177/106 174/108 (130) 145/93 (110) Pulse Ox 97 99 99 O2 Flow Rate 0 0 0 Laboratory Tests Test 04/30/25 19:54 04/30/25 20:42 CBC Comment Sodium Level 139 Potassium Level 4.0 Chloride Level 106 Carbon Dioxide Level 24.1 Anion Gap 9 Blood Urea Nitrogen 17 Creatinine 0.92 Estimated GFR/1.73 m2 > 90 BUN/Creatinine Ratio 18.5 Glucose Level 104 Calcium Level 8.7 Troponin I High Sensitivity 8 Pro-B-Type Natriuretic Peptide 53 Albumin 3.4 Chemistry Comments White Blood Count 9.6 Red Blood Count 4.86 Hemoglobin 13.0 L Hematocrit 39.1 L Mean Corpuscular Volume 80.4 Mean Corpuscular Hemoglobin 26.9 L Mean Corpuscular Hemoglobin Concent 33.4 Red Cell Distribution Width 13.7 Platelet Count 199 Mean Platelet Volume 9.4 Neutrophils (%) (Auto) 60.9 Lymphocytes (%) (Auto) 24.3 Monocytes (%) (Auto) 9.6 Eosinophils (%) (Auto) 4.4 Basophils (%) (Auto) 0.8 Neutrophils # (Auto) 5.8 Lymphocytes # (Auto) 2.3 Monocytes # (Auto) 0.9 Eosinophils # (Auto) 0.4 Basophils # (Auto) 0.1 EKG/XRAY/CT/US/VASC/MRI EKG : Additional Comment I personally interpreted the EKG and this shows: Sinus rhythm, rate 79, QTC 465, no STEMI Medical Decision Making Differential Dx:Considerations: Include: anxiety, bronchitis, COPD, dysrhythmia, pneumonia, pneumothorax, pulmonary embolism, upper resp. infection Additional Infomation The patient presents with multiple symptoms including shortness of breath, chest discomfort, hiccups, vomiting. He reports a history of intermittent similar episodes in the past. He was given IV fluids because he appeared dehydrated, given Zofran Thorazine and Versed has this is helped him with the symptoms in the past. EKG without ischemic changes. Chest x-ray unremarkable. Labs are unremarkable. The patient was given symptomatic treatment that had seemed to help him in the past, and after this his symptoms were controlled. He has a benign abdominal exam. The exact cause of the symptoms is unclear. On re- evaluation, he is resting comfortably in bed, and states he would like to go home. He will be given a refill on his prescriptions for the Thorazine, Zofran and a small course of Ativan. He will follow up with his primary care doctor for further evaluation. Departure Time of Disposition: 21:53 Disposition: HOME / SELF CARE / HOMELESS Impression: Primary Impression: Hiccups Additional Impressions: Shortness of breath Nausea and vomiting Condition: Stable Discharge Instructions: Nausea and Vomiting, Adult Referrals: NO PRIMARY CARE PROVIDER (PCP) Prescriptions Lorazepam (Ativan) 1 Mg Tablet 1 TAB PO DAILY PRN for anxiety for 30 Days, #6 TAB 0 Refills Prov: THEODORA FLANAGAN MD 04/30/25 ONDANSETRON ODT 4mg tablet (ONDANSETRON ODT) 4 Mg Tab.rapdis 1 TAB PO Q6H PRN PRN for nausea/vomiting for 14 Days, #28 TAB 0 Refills Prov: THEODORA FLANAGAN MD 04/30/25 Chlorpromazine Hcl* (Thorazine*) 10 Mg Tablet 1 TAB PO Q8H PRN for hiccups for 30 Days, #90 TAB Prov: THEODORA FLANAGAN MD 04/30/25 Education Educated: Patient Educated regarding: diagnosis, treatment, need for follow up Signature Scribe Signature: edwin Attestation: THEODORA Santa MD Apr 30, 2025 20:13
--- NOTE | 2025-04-30 20:27 | RADIOLOGY REPORT ---
CHEST RADIOGRAPH Indication: CP Technique: 1 view Comparison: DI CHEST,SINGLE VIEW on DOS: 04/15/24 FINDINGS: Lines and Tubes: None Lungs: No focal consolidation. Pleura: No effusion or pneumothorax. Cardiomediastinal contours: Mildly enlarged heart size which may be exaggerated by technique. Other: No acute osseous abnormality. IMPRESSION: 1. No acute cardiopulmonary abnormality.
[2025-04-30 20:34] LABS: CREATININE 0.92 MG/DL (0.60-1.10); PRO BRAIN NATRIURETIC PEPTIDE 53 PG/ML (0-125); TOTAL CARBON DIOXIDE 24.1 MMOL/L (24-32); eCRCL 84 ML/MIN; eGFR > 90 ML/MIN
[2025-04-30] MEDS: ondansetron/PF 4mg/2ml inj IV ONE (20:42)
[2025-04-30] MEDS: midazolam 1 mg/ML 2ml injection IV ONE (20:42)
[2025-04-30] MEDS: normal saline 1000ML IV soln IVB ONE (20:42)
[2025-04-30 20:55] LABS: MEAN PLATELET VOLUME 9.4 FL (7.4-10.4); RED CELL DISTRIBUTION WIDTH 13.7 % (11.5-14.5)
[2025-04-30] MEDS: chlorproMAZINE 25mg/ml inj. IV ONE (21:16)
[2025-04-30] MEDS ORDERED: ONDA-243 PO (21:56)
[2025-04-30] MEDS ORDERED: LORA-269 PO (21:56)
[2025-04-30] MEDS ORDERED: CHLO10TA18 PO (21:56)
[2025-04-30 22:14] VITALS: BP 145/80; PULSE 60; RESP 18; TEMP 98.1; O2SAT 99
== END 2025-04-30 22:16 | disposition home or self-care (01) ==
LOC: ER 19:33
DX: R06.6 Hiccough (principal); R06.02 Shortness of breath; R11.2 Nausea with vomiting, unspecified; F12.90 Cannabis use, unspecified, uncomplicated; E11.9 Type 2 diabetes mellitus without complications; Z88.5 Allergy status to narcotic agent; Z79.899 Other long term (current) drug therapy; Z72.89 Other problems related to lifestyle; Z60.2 Problems related to living alone
CPT/HCPCS: 36415; 71045; 80048; 83880; 84484; 85025; 93005; 96361; 96374; 96375; 99285; J2250; J2405; J7030; Q0161

== ENCOUNTER 2025-05-05 13:47 | Emergency (ER) | payer MEDICAID ==
[~2025-05-05] VITALS: Ht 177.8 cm; Wt 102.9 kg
[~2025-05-05 13:47] MED LIST changes: +CHLO10TA18 PO; +LORA-269 PO
[2025-05-05 13:53] VITALS: BP 163/98; PULSE 97; RESP 18; TEMP 97.4; O2SAT 96
--- NOTE | 2025-05-05 15:54 | Physician Documentation ---
HPI ~ General Chief Complaint: Medication Refill Stated Complaint: MED REQUEST Time Seen by MD: 15:13 Primary Medical Doctor: NO PCP History of Present Illness HPI Comments This is a 65-year-old male with a history of severe anxiety who presents requesting a refill of his PRN Ativan due to recent anxiety, patient reports he has a mental health appointment on May 12 to address his anxiety however has been having very severe anxiety in the last week, reports he was seen at [facility] emergency department prescribed Ativan which has helped. Medication Reconciliation Allergies: Coded Allergies: morphine (Verified Allergy, Unknown, "DOESN'T LIKE IT", 05/05/25) Scheduled Amlodipine Besylate (Amlodipine Besylate), 1 TAB PO DAILY Apixaban (Eliquis), 5 MG PO BID Bupropion Hcl (Wellbutrin Xl), 1 TAB PO DAILY Cefdinir (Cefdinir), 1 CAP PO Q12H Chlorpromazine HCl (Chlorpromazine HCl), 1 TAB PO Q8H Doxepin HCl (Doxepin HCl), 1 CAP PO HS, (Reported) Famotidine (Famotidine), 1 TAB PO Q12H Gabapentin (Gabapentin), 1 TAB PO Q8H Gabapentin (Gabapentin), 1 TAB PO Q8H Glecaprevir/Pibrentasvir (Mavyret 100-40 mg Tablet), 3 TAB PO DAILY Hydrochlorothiazide (Hydrochlorothiazide), 1 TAB PO DAILY Hydroxyzine Hcl* (Atarax*), 1 TAB PO Q8H Ibuprofen (Ibuprofen), 1 TAB PO Q8H Lactobacillus Rhamnosus (Culturelle), 1 CAP PO DAILY Losartan Potassium (Losartan Potassium), 50 MG PO DAILY Naloxone HCl (Narcan), 1 SPRAYS BOTHNARES ONCE Nicotine (Nicotine Patch), 1 PATCH TOP DAILY Ondansetron 8mg ODT (Ondansetron Odt), 1 TAB PO Q6H Scheduled PRN Chlorpromazine Hcl* (Thorazine*), 1 TAB PO Q8H PRN for hiccups Clonazepam (Klonopin), 1 TAB PO QDAY PRN PRN for anxiety Clonazepam (Klonopin), 1 TAB PO Q12H PRN PRN for anxiety Hydrocodone Bit/Acetaminophen (Hydrocodone-Apap 10-325 Tablet), 1 TAB PO Q8H PRN for pain, (Reported) Lorazepam (Ativan), 1 TAB PO DAILY PRN for anxiety ONDANSETRON ODT 4mg tablet (Ondansetron Odt), 1 TAB PO Q6H PRN PRN for nausea/vomiting ONDANSETRON ODT 4mg tablet (Ondansetron Odt), 1 TAB PO Q6H PRN PRN for nausea/vomiting Oxycodone HCl/Acetaminophen (Percocet 5-325 mg Tablet), 1-2 TABLET PO Q4H PRN for pain Durable Medical Equipment Cane (Cane), EA, (DME) Past Medical History Past Medical History: Diabetes, Chronic Pain Past Surgical History: noncontributory Patient History: FH: stroke FHx: cardiovascular disease Alcohol Use: Occasionally Drug Use: none, marijuana Lives with: Alone Lives In: Home Review of Systems ROS As stated above in the HPI, otherwise all systems are reviewed and negative. Physical Exam Physical Exam Vital Signs: Temperature: 97.4, Source: Temporal, Heart Rate: 97, Respiratory R ate: 18, BP: 163/98, Pulse Oximetry: 96, Weight: 102.900 Oxygen Flow Rate: 0 Physical Exam VITALS: Reviewed and as above. GENERAL: Alert, nontoxic appearing, no apparent distress. RESPIRATORY: No increased work of breathing, no respiratory distress, speaking in full clear sentences Progress Results/Orders Results/Orders Vital Signs 05/05/25 13:53 Temp 97.4 Pulse 97 Resp 18 B/P (MAP) 163/98 Pulse Ox 96 O2 Flow Rate 0 Medical Decision Making Findings Due to patient's severe anxiety I believe a refill of a short course of Ativan is warranted, I have verified patient with a prescription for Ativan previously with [employer] database, patient does report that he has been taking it as needed up to twice a day though the prescribed directions were for a once a day as needed. I have discussed this with the patient and he has been advised that we will no longer refill Ativan prescriptions after this refill. Patient has additionally been prescribed Atarax to be used 1st for anxiety symptoms before he has to use the PRN Ativan. Differential Dx:Considerations: Include: Adverse circumstances, Economic, Psychosocial, Medical services unavail., Medication refill, Medication non- compliance, Other (Suicidal ideation, homicidal ideation, drug seeking behavior) Departure Time of Disposition: 15:52 Disposition: 01 HOME / SELF CARE / HOMELESS Impression: Primary Impression: Anxiety Additional Impression: Medication refill Condition: Improved Discharge Instructions: Medicine Refill at the Emergency Department Additional Instructions: I have refilled your prescription for Ativan this one time we will no longer refill your Ativan prescription after this. Your prescription is for one Ativan a day as needed, you have also been prescribed Atarax, I recommend you try the Atarax before using the Ativan. Please follow up with your mental health appointment as scheduled. Please follow up with your primary care provider in the next few days. Please return to the emergency department for any new or worsening concerning symptoms. Referrals: NO PRIMARY CARE PROVIDER (PCP) Prescriptions Hydroxyzine Hcl* (Atarax*) 25 Mg Tablet 1 TAB PO Q8H for anxiety for 10 Days, #30 TAB Prov: NAYA WEN 05/05/25 Lorazepam (Ativan) 1 Mg Tablet 1 TAB PO DAILY PRN for anxiety for 30 Days, #6 TAB 0 Refills Prov: NAYA WEN 05/05/25 Education Educated: Patient Educated regarding: diagnosis, treatment, prognosis, need for follow up Signature Scribe Signature: No scribe Attestation: The note accurately reflects work and decisions made by me.ANJELICA Tracy 05/05/25 20:35 NAYA WEN May 05, 2025 15:54
[2025-05-05] MEDS ORDERED: LORA-269 PO (15:55)
[2025-05-05] MEDS ORDERED: HYDR-3686 PO (15:55)
== END 2025-05-05 16:07 | disposition home or self-care (01) ==
LOC: ER 13:47
DX: F41.9 Anxiety disorder, unspecified (principal); Z76.0 Encounter for issue of repeat prescription; E11.9 Type 2 diabetes mellitus without complications; Z88.5 Allergy status to narcotic agent
CPT/HCPCS: 99283

== ENCOUNTER 2025-06-15 14:05 | Emergency (ER) | payer MEDICAID ==
[~2025-06-15] VITALS: Ht 177.8 cm; Wt 101.8 kg
[~2025-06-15 14:05] MED LIST changes: -CHLO10TA18 PO
[2025-06-15 14:20] VITALS: TEMP 97.2
--- NOTE | 2025-06-15 14:28 | Physician Documentation ---
History of Present Illness ~ Chief Complaint: Abdominal Pain w/vomiting Stated Complaint: POST OP COMPLICATIONS Time Seen by MD: 14:24 Primary Medical Doctor: NO PCP HPI This 65-year-old male presents to the emergency department. He reports that he went to his two week postop appointment today with surgeon Dr. Bell. There were no concerns about his knee, but the patient notes that he is having persistent issues with right-sided abdominal pain, nausea, and burping/hiccuping. Does admit that he has been constipated due to taking pain medications postoperatively, but took the prescribed stool softeners and had a couple normal bowel movements this morning. He denies any fevers. Notes that a combination of Thorazine and Ativan in the past has been effective in relieving these symptoms. Hx appendectomy at age 17. Medication Reconciliation Allergies: Coded Allergies: morphine (Verified Allergy, Unknown, "DOESN'T LIKE IT", 06/15/25) Scheduled Amlodipine Besylate (Amlodipine Besylate), 1 TAB PO DAILY Apixaban (Eliquis), 5 MG PO BID Bupropion Hcl (Wellbutrin Xl), 1 TAB PO DAILY Cefdinir (Cefdinir), 1 CAP PO Q12H Chlorpromazine HCl (Chlorpromazine HCl), 1 TAB PO Q8H Doxepin HCl (Doxepin HCl), 1 CAP PO HS, (Reported) Famotidine (Famotidine), 1 TAB PO Q12H Gabapentin (Gabapentin), 1 TAB PO Q8H Gabapentin (Gabapentin), 1 TAB PO Q8H Glecaprevir/Pibrentasvir (Mavyret 100-40 mg Tablet), 3 TAB PO DAILY Hydrochlorothiazide (Hydrochlorothiazide), 1 TAB PO DAILY Ibuprofen (Ibuprofen), 1 TAB PO Q8H Lactobacillus Rhamnosus (Culturelle), 1 CAP PO DAILY Losartan Potassium (Losartan Potassium), 50 MG PO DAILY Naloxone HCl (Narcan), 1 SPRAYS BOTHNARES ONCE Nicotine (Nicotine Patch), 1 PATCH TOP DAILY Ondansetron 8mg ODT (Ondansetron Odt), 1 TAB PO Q6H Scheduled PRN Clonazepam (Klonopin), 1 TAB PO QDAY PRN PRN for anxiety Clonazepam (Klonopin), 1 TAB PO Q12H PRN PRN for anxiety Hydrocodone Bit/Acetaminophen (Hydrocodone-Apap 10-325 Tablet), 1 TAB PO Q8H PRN for pain, (Reported) Lorazepam (Ativan), 1 TAB PO DAILY PRN for anxiety ONDANSETRON ODT 4mg tablet (Ondansetron Odt), 1 TAB PO Q6H PRN PRN for nausea/vomiting ONDANSETRON ODT 4mg tablet (Ondansetron Odt), 1 TAB PO Q6H PRN PRN for nausea/vomiting Oxycodone HCl/Acetaminophen (Percocet 5-325 mg Tablet), 1-2 TABLET PO Q4H PRN for pain Durable Medical Equipment Cane (Cane), EA, (DME) Past Medical History Past Medical History: Diabetes, Chronic Pain Past Surgical History: noncontributory Patient History: FH: stroke FHx: cardiovascular disease Alcohol Use: Occasionally Drug Use: none, marijuana Lives with: Alone Lives In: Home Review of Systems ROS As stated above in the HPI, otherwise all systems are reviewed and negative. Physical Exam Vital Signs: Temperature: 97.2, Source: Temporal, Heart Rate: 84, Respiratory Rate: 16, BP: 190/111, Pulse Oximetry: 98, Weight: 101.820 Oxygen Flow Rate: 0 General Appearance General: Alert, mild distress. Frequent belching/retching noted. Neck: Full range of motion. Respiratory: Lungs clear, no respiratory distress. Chest: No accessory muscle use. Cardiovascular: Regular rate and rhythm, no murmurs. Gastrointestinal: Soft, TTP right abdomen, mildly distended. Bowels sounds present. Extremities: Normal range of motion, no deformity. Neurologic: Oriented x4. Psychiatric: Normal mood and affect. Skin: Normal color, warm and dry. No edema, no ecchymosis. Progress Results/Orders Results/Orders Medications Received in ER Medications (Trade) Dose Ordered Sig/Maryse Route PRN Reason Start Time Stop Time Status Last Admin Dose Admin (Thorazine inj) 12.5 mg ONCE ONCE IM 06/15/25 14:25 06/15/25 14:26 DC 06/15/25 14:43 12.5 MG (Ativan tablet) 0.5 mg ONCE PRN PO for anxiety/agitation 06/15/25 14:25 06/15/25 14:39 0.5 MG Vital Signs 10/8/25 10/8/25 14:20 14:48 Temp 97.2 Pulse 84 Resp 16 B/P (MAP) 190/111 Pulse Ox 98 O2 Flow Rate 0 Laboratory Tests Test 06/15/25 14:40 White Blood Count 13.1 H Red Blood Count 4.24 L Hemoglobin 11.2 L Hematocrit 34.3 L Mean Corpuscular Volume 80.9 Mean Corpuscular Hemoglobin 26.4 L Mean Corpuscular Hemoglobin Concent 32.6 L Red Cell Distribution Width 14.3 Platelet Count 336 Mean Platelet Volume 8.6 Neutrophils (%) (Auto) 75.5 H Lymphocytes (%) (Auto) 14.0 L Monocytes (%) (Auto) 8.1 Eosinophils (%) (Auto) 1.3 Basophils (%) (Auto) 1.1 H Neutrophils # (Auto) 9.9 H Lymphocytes # (Auto) 1.8 Monocytes # (Auto) 1.1 H Eosinophils # (Auto) 0.2 Basophils # (Auto) 0.1 CBC Comment Sodium Level 136 Potassium Level 3.6 Chloride Level 97 L Carbon Dioxide Level 35.0 H Anion Gap 4 L Blood Urea Nitrogen 14 Creatinine 0.85 Estimated GFR/1.73 m2 > 90 BUN/Creatinine Ratio 16.5 Glucose Level 110 H Calcium Level 8.3 L Total Bilirubin 0.5 Aspartate Amino Transf (AST/SGOT) 14 Alanine Aminotransferase (ALT/SGPT) 12 Alkaline Phosphatase 89 Total Protein 8.1 Albumin 3.1 L Globulin 5.0 H Albumin/Globulin Ratio 0.6 L Lipase 22 Chemistry Comments Medical Decision Making Findings Since labs are unremarkable other than a mildly elevated white count which I can attribute to his persistent vomiting. He received IV medications and an Ativan in his sleeping undisturbed without any vomiting. Going to monitor him for a bit longer and discharge him as his symptoms have resolved Diff Dx N/V/D:Considerations: Include: Appendicitis, Bowel obstruction, Dehydration, DKA, Diarrhea - bacterial, Diarrhea - parasitic, Diarrhea - viral, Diverticulitis, Diverticulosis, Drug toxicity, Electrolyte imbalance, Food poisoning, Gastroenteritis, GE reflux, GI bleed, Hepatitis, Hernia, Hypovolemia, Hypotension, Inflammatory BD, Impaction, Malnutrition, Pancreatitis, PUD, Renal failure, Urinary obstruction, UTI, Urolithiasis Departure Disposition: 01 HOME / SELF CARE / HOMELESS Impression: Primary Impression: Vomiting Condition: Improved Discharge Instructions: Abdominal Pain (Nonspecific) Referrals: NO PRIMARY CARE PROVIDER (PCP) Signature Scribe Signature: x Attestation: The note accurately reflects work and decisions made by me.Rudy Reeves NP 06/15/25 14:26 RUDY NIETO NP Jun 15, 2025 14:28 MIREYA LANDIN NP Jun 15, 2025 15:24
--- NOTE | 2025-06-15 14:31 | Physician Documentation ---
History of Present Illness Chief Complaint: Abdominal Pain w/vomiting Stated Complaint: POST OP COMPLICATIONS Time Seen by MD: 14:24 Primary Medical Doctor: NO PCP HPI Patient presents for vomiting generally was abdominal pain. Patient had a recent knee replacement surgery and states that he thinks that the medications prescribed may be causing his symptoms. Been having normal bowel movements. He deniesany fevers or chest pain shortness a breath Patient had a right knee replacement on May. Placed on Keflex. Wound shows no signs of infection. His primary complaint is hiccups which he says he has had in the past and requires Thorazine and Ativan to treat symptoms Day of Onset: Jun 15, 2025 Medication Reconciliation Allergies: Coded Allergies: morphine (Verified Allergy, Unknown, "DOESN'T LIKE IT", 06/15/25) Scheduled Amlodipine Besylate (Amlodipine Besylate), 1 TAB PO DAILY Apixaban (Eliquis), 5 MG PO BID Bupropion Hcl (Wellbutrin Xl), 1 TAB PO DAILY Cefdinir (Cefdinir), 1 CAP PO Q12H Chlorpromazine HCl (Chlorpromazine HCl), 1 TAB PO Q8H Doxepin HCl (Doxepin HCl), 1 CAP PO HS, (Reported) Famotidine (Famotidine), 1 TAB PO Q12H Gabapentin (Gabapentin), 1 TAB PO Q8H Gabapentin (Gabapentin), 1 TAB PO Q8H Glecaprevir/Pibrentasvir (Mavyret 100-40 mg Tablet), 3 TAB PO DAILY Hydrochlorothiazide (Hydrochlorothiazide), 1 TAB PO DAILY Ibuprofen (Ibuprofen), 1 TAB PO Q8H Lactobacillus Rhamnosus (Culturelle), 1 CAP PO DAILY Losartan Potassium (Losartan Potassium), 50 MG PO DAILY Naloxone HCl (Narcan), 1 SPRAYS BOTHNARES ONCE Nicotine (Nicotine Patch), 1 PATCH TOP DAILY Ondansetron 8mg ODT (Ondansetron Odt), 1 TAB PO Q6H Scheduled PRN Clonazepam (Klonopin), 1 TAB PO QDAY PRN PRN for anxiety Clonazepam (Klonopin), 1 TAB PO Q12H PRN PRN for anxiety Hydrocodone Bit/Acetaminophen (Hydrocodone-Apap 10-325 Tablet), 1 TAB PO Q8H PRN for pain, (Reported) Lorazepam (Ativan), 1 TAB PO DAILY PRN for anxiety ONDANSETRON ODT 4mg tablet (Ondansetron Odt), 1 TAB PO Q6H PRN PRN for nausea/vomiting ONDANSETRON ODT 4mg tablet (Ondansetron Odt), 1 TAB PO Q6H PRN PRN for nausea/vomiting Oxycodone HCl/Acetaminophen (Percocet 5-325 mg Tablet), 1-2 TABLET PO Q4H PRN fo r pain Durable Medical Equipment Cane (Cane), EA, (DME) Past Medical History Past Medical History: Diabetes, Chronic Pain Past Surgical History: noncontributory Patient History: FH: stroke FHx: cardiovascular disease Alcohol Use: Occasionally Drug Use: none, marijuana Lives with: Alone Lives In: Home Review of Systems All Other Systems at this time: Reviewed and Negative ROS As stated above in the HPI, otherwise all systems are reviewed and negative. Physical Exam Vital Signs: Temperature: 97.2, Source: Temporal, Heart Rate: 84, Respiratory Rate: 16, BP: 190/111, Pulse Oximetry: 98, Weight: 101.820 Oxygen Flow Rate: 0 Physical Exam General: Alert, no apparent distress. HEENT: PERRL, EOMI, no injection, moist mucous membranes. Neck: Full range of motion. Respiratory: Lungs clear, no respiratory distress. Chest: No accessory muscle use. Cardiovascular: Regular rate and rhythm, no murmurs. Gastrointestinal: Soft, nontender, nondistended. Bowels sounds present. Extremities: Normal range of motion, no deformity. Neurologic: Oriented x4. Psychiatric: Normal mood and affect. Skin: Normal color, warm and dry. No edema, no ecchymosis. Progress Results/Orders Results/Orders Vital Signs 06/15/25 14:20 Temp 97.2 Pulse 84 Resp 16 B/P (MAP) 190/111 Pulse Ox 98 O2 Flow Rate 0 Medical Decision Making Findings After receiving medications in the ED patient's symptoms resolved he no longer and hiccups. Gait tested prior to discharge via ED staff. provided him a safe ride home Differential Dx:Considerations: Include: AAA, Angina/HI, Aortic dissection, Appendicitis, Bowel obstruction, Cholangitis, Cholelithasis, Constipation, Diverticular disease, Esophageal rupture, Esophagitis, Gastritis/PUD, Gastroenteritis, GI hemorrhage, Hernia, Hepatitis, Inflammatory BD, Ischemic b owel, Pancreatitis, Porphyria, Testicular torsion, Trauma, intraabdominal, Urinary obstruction, Urinary tract infection, Urolithiasis, Other Departure Disposition: 01 HOME / SELF CARE / HOMELESS Impression: Primary Impression: Vomiting Discharge Instructions: Hiccups Referrals: NO PRIMARY CARE PROVIDER (PCP) Signature Scribe Signature: g Attestation: Scribed for [facility] Chief Financial Officer by Kvng Reeves NP . 06/15/25 15:12 KVNG LANDIN NP Jun 15, 2025 14:31
[2025-06-15] MEDS: chlorproMAZINE 25mg/ml inj. IM ONE (14:43)
[2025-06-15 14:47] LABS: MEAN PLATELET VOLUME 8.6 FL (7.4-10.4); RED CELL DISTRIBUTION WIDTH 14.3 % (11.5-14.5)
[2025-06-15 15:03] LABS: CREATININE 0.85 MG/DL (0.60-1.10); TOTAL CARBON DIOXIDE 35.0 MMOL/L (24-32); eCRCL 91 ML/MIN; eGFR > 90 ML/MIN
[2025-06-15 15:48] LABS: LEUKOCYTE ESTERASE ,URINE NEGATIVE (Neg); NITRITES, URINE NEGATIVE (Neg); OCCULT BLOOD,URINE TRACE-INTACT (Neg)
[2025-06-15 16:04] LABS: UA COLLECTION TYPE URINAL
[2025-06-15 16:05] VITALS: BP 178/93; PULSE 84; RESP 22; O2SAT 100
[2025-06-15 16:05] LABS: SQUAMOUS EPITHELIAL CELL,UR FEW /LPF (FEW)
== END 2025-06-15 16:29 | disposition home or self-care (01) ==
LOC: ER 14:05
DX: R11.2 Nausea with vomiting, unspecified (principal); E11.9 Type 2 diabetes mellitus without complications; F12.90 Cannabis use, unspecified, uncomplicated; Z88.5 Allergy status to narcotic agent; Z88.8 Allergy status to other drugs, medicaments and biological substances; Z90.49 Acquired absence of other specified parts of digestive tract
CPT/HCPCS: 36415; 80053; 81001; 83690; 85025; 96372; 99283; J3230

== ENCOUNTER 2025-07-29 16:43 | Emergency (ER) | payer MEDICAID ==
[~2025-07-29] VITALS: Ht 177.8 cm; Wt 98.7 kg
[2025-07-29 17:11] VITALS: BP 158/94; PULSE 107; O2SAT 98
[2025-07-29] MEDS: ondansetron 4mg rapidly disintigrating tab PO ONE (18:02)
[2025-07-29 18:03] VITALS: RESP 16
--- NOTE | 2025-07-29 18:47 | Physician Documentation ---
HPI ~ General Chief Complaint: Medication Refill Stated Complaint: VOMITING Time Seen by MD: 17:21 Primary Medical Doctor: NO PCP History of Present Illness HPI Comments This is a 65-year-old male with a history of chronic intractable hiccuping who presents with hiccuping, belching, and nausea after running out of his previously prescribed medications for these conditions, patient additionally reports feeling anxious and is requesting a refill of his Ativan. Patient is well known to myself and this emergency department. Patient reports no other acute symptoms or concerns. Patient reports primary concern is refill of medications though is requesting a dose of medications in the emergency department tonight. Medication Reconciliation Allergies: Coded Allergies: morphine (Verified Allergy, Unknown, "DOESN'T LIKE IT", 07/29/25) Scheduled Amlodipine Besylate (Amlodipine Besylate), 1 TAB PO DAILY Apixaban (Eliquis), 5 MG PO BID Bupropion Hcl (Wellbutrin Xl), 1 TAB PO DAILY Cefdinir (Cefdinir), 1 CAP PO Q12H Chlorpromazine HCl (Chlorpromazine HCl), 1 TAB PO Q8H Chlorpromazine HCl (Chlorpromazine HCl), 1 TAB PO Q8H Doxepin HCl (Doxepin HCl), 1 CAP PO HS, (Reported) Famotidine (Famotidine), 1 TAB PO Q12H Gabapentin (Gabapentin), 1 TAB PO Q8H Gabapentin (Gabapentin), 1 TAB PO Q8H Glecaprevir/Pibrentasvir (Mavyret 100-40 mg Tablet), 3 TAB PO DAILY Hydrochlorothiazide (Hydrochlorothiazide), 1 TAB PO DAILY Ibuprofen (Ibuprofen), 1 TAB PO Q8H Lactobacillus Rhamnosus (Culturelle), 1 CAP PO DAILY Losartan Potassium (Losartan Potassium), 50 MG PO DAILY Naloxone HCl (Narcan), 1 SPRAYS BOTHNARES ONCE Nicotine (Nicotine Patch), 1 PATCH TOP DAILY Ondansetron 8mg ODT (Ondansetron Odt), 1 TAB PO Q6H Scheduled PRN Clonazepam (Klonopin), 1 TAB PO QDAY PRN PRN for anxiety Clonazepam (Klonopin), 1 TAB PO Q12H PRN PRN for anxiety Hydrocodone Bit/Acetaminophen (Hydrocodone-Apap 10-325 Tablet), 1 TAB PO Q8H PRN for pain, (Reported) Lorazepam (Ativan), 1 TAB PO DAILY PRN for anxiety ONDANSETRON ODT 4mg tablet (Ondansetron Odt), 1 TAB PO Q6H PRN PRN for nausea/vomiting ONDANSETRON ODT 4mg tablet (Ondansetron Odt), 1 TAB PO Q6H PRN PRN for nausea/vomiting ONDANSETRON ODT 4mg tablet (Ondansetron Odt), 1 TAB PO Q6H PRN PRN for nausea/vomiting Oxycodone HCl/Acetaminophen (Percocet 5-325 mg Tablet), 1-2 TABLET PO Q4H PRN for pain Durable Medical Equipment Cane (Cane), EA, (DME) Past Medical History Past Medical History: Diabetes, Chronic Pain Past Surgical History: noncontributory Patient History: FH: stroke FHx: cardiovascular disease Alcohol Use: Occasionally Drug Use: none, marijuana Lives with: Alone Lives In: Home Review of Systems ROS As stated above in the HPI, otherwise all systems are reviewed and negative. Physical Exam Physical Exam Vital Signs: Temperature: 98.7, Source: Oral, Heart Rate: 107, Respiratory Rate: 16, BP: 158/94, Pulse Oximetry: 98, Weight: 98.700 Oxygen Flow Rate: 0 Physical Exam VITALS: Reviewed and as above. 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 Tablet (Zofran Odt T (07/29/25 17:45) Vital Signs 07/29/25 07/29/25 07/29/25 17:11 18:03 18:56 Temp 98.7 98.7 Pulse 107 Resp 18 16 B/P (MAP) 158/94 Pulse Ox 98 O2 Flow Rate 0 Medical Decision Making Additional information obtaine: old records Findings This is a 65-year-old male with a history of intractable hiccuping and anxiety presented to the emergency department with anxiety and hiccups with belching and nausea after he ran out of previously prescribed medications, patient reports he does have follow up early next week which is reassuring. Patient will have medications refilled with the exception of Ativan which patient has been told multiple times we will no longer refill his Ativan in his emergency department. Patient is to follow up with primary care provider for further management of previously prescribed medications future. Patient is otherwise well-appearing reporting no other acute symptoms or concerns and appropriate for outpatient follow up. Differential Dx:Considerations: Include: Adverse circumstances, Economic, Psychosocial, Medical services unavail., Medication refill, Medication non- compliance, Other Departure Time of Disposition: 18:45 Disposition: 01 HOME / SELF CARE / HOMELESS Impression: Primary Impression: Nausea Additional Impressions: Chronic hiccups Anxiety Condition: Improved Discharge Instructions: Medicine Refill at the Emergency Department Additional Instructions: Please follow up with the primary care provider or the [facility] [facility] for further management of your prescribed medications. Please follow up with your primary care provider in the next few days. Please return to the emergency department for any new or worsening concerning symptoms. Referrals: NO PRIMARY CARE PROVIDER (PCP) Prescriptions ONDANSETRON ODT 4mg tablet (ONDANSETRON ODT) 4 Mg Tab.rapdis 1 TAB PO Q6H PRN PRN for nausea/vomiting for 4 Days, #16 TAB 0 Refills Prov: NAYA WEN 07/29/25 Chlorpromazine HCl (Chlorpromazine HCl) 25 Mg Tablet 1 TAB PO Q8H for 10 Days, #30 TAB 0 Refills Prov: NAYA WEN 07/29/25 Education Educated: Patient Educated regarding: diagnosis, treatment, prognosis, need for follow up Signature Scribe Signature: No scribe Attestation: The note accurately reflects work and decisions made by me.ANJELICA Tracy 07/30/25 02:11 NAYA WEN Jul 29, 2025 18:47
[2025-07-29] MEDS ORDERED: ONDA-243 PO (18:55)
[2025-07-29] MEDS ORDERED: CHLO25TA68 PO (18:55)
[2025-07-29 18:56] VITALS: TEMP 98.7
== END 2025-07-29 19:03 | disposition home or self-care (01) ==
LOC: ER 16:44
DX: R11.2 Nausea with vomiting, unspecified (principal); R06.6 Hiccough; F41.9 Anxiety disorder, unspecified; E11.9 Type 2 diabetes mellitus without complications; F12.90 Cannabis use, unspecified, uncomplicated; Z88.5 Allergy status to narcotic agent; Z88.8 Allergy status to other drugs, medicaments and biological substances
CPT/HCPCS: 96372; 99283; J0780